=== PATIENT | male | born 1940 | race Caucasian/White ===

== ENCOUNTER 2020-11-18 14:21 | Emergency (ER) | payer MEDICARE, BC ==
[2020-11-18 14:50] VITALS: RESP 18
--- NOTE | 2020-11-18 15:27 | ED ---
General Adult HPI - General Chief complaint: Urogenital Stated complaint: Urogenital Time Seen by Provider: 11/18/20 15:00 Source: patient Mode of arrival: ambulatory Limitations: no limitations - History of Present Illness Initial comments: Dictation was produced using [employer] dictation software. please excuse any grammatical, word or spelling errors. Chief Complaint: 79-year-old male with urinary retention History of Present Illness: 79-year-old male he is been having difficulties with urinary retention the last several days. Patient states that he noted that there is been some hematuria. He did see the urologist yesterday who did not have very many recommendations. States that he recently climax after having sexual activity with his after not having been able to climax for several weeks. 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 He spoke with his primary care doctor who instructed him to come to the emergency department for ultrasound. Patient states that in the parking lot trying to exit his car he was able to urinate a large amount. He feels significantly better now. Denies any dysuria The ROS documented in this emergency department record has been reviewed and confirmed by me. Those systems with pertinent positive or negative responses have been documented in the HPI. All other systems are other negative and/or noncontributory. PHYSICAL EXAM: General Impression: Alert and oriented x3, not in acute distress HEENT: Normocephalic atraumatic, extra-ocular movements intact, pupils equal and reactive to light bilaterally, mucous membranes moist. Cardiovascular: Heart regular rate and rhythm Chest: Able to complete full sentences, no retractions, no tachypnea Abdomen: abdomen soft, non-tender, non-distended, no organomegaly Musculoskeletal: Pulses present and equal in all extremities, no peripheral edema Motor: no focal deficits noted Neurological: CN II-XII grossly intact, no focal motor or sensory deficits noted Skin: Intact with no visualized rashes Psych: Normal affect and mood ED course: 79-year-old male with urinary retention. Vital Signs upon arrival are within acceptable limits. Bladder scan was performed patient had greater than 900 mL of urine and was unable to urinate. Morelos catheter was placed. There was some bloody urine but no observed clots in the Morelos catheter reservoir. Patient given leg bag. Patient discharge. Advised to follow up again with urology. - Related Data Allergies Allergy/AdvReac Type Severity Reaction Status Date / Time Penicillins AdvReac Rash/Hives Verified 11/18/20 14:48 Sulfa (Sulfonamide AdvReac Rash/Hives Verified 11/18/20 14:48 Antibiotics) Review of Systems ROS Statement: Those systems with pertinent positive or pertinent negative responses have been documented in the HPI. ROS Other: All systems not noted in ROS Statement are negative. Past Medical History Past Medical History: Coronary Artery Disease (CAD), Cancer, Diabetes Mellitus, Hyperlipidemia, Hypertension, Myocardial Infarction ([place]), Osteoarthritis ([place]) Additional Past Medical History / Comment(s): prostate cancer History of Any Multi-Drug Resistant Organisms: None Reported Past Surgical History: Heart Catheterization With Stent Additional Past Surgical History / Comment(s): 9 stents Past Psychological History: No Psychological Hx Reported Smoking Status: Former smoker Past Alcohol Use History: Occasional Past Drug Use History: None Reported General Exam Limitations: no limitations Course Vital Signs 11/18/20 14:44 Temperature 98 F Pulse Rate 84 Respiratory 18 Rate Blood Pressure 145/81 O2 Sat by Pulse 97 Oximetry Disposition Clinical Impression: Urinary retention Disposition: HOME SELF-CARE Condition: Fair Instructions (If sedation given, give patient instructions): Urinary Retention in Men (ED) Is patient prescribed a controlled substance at d/c from ED?: No Referrals: Sha Morales MD [STAFF PHYSICIAN] - 1-2 days
[2020-11-18 16:48] VITALS: BP 143/72; PULSE 76; TEMP 97.7
[2020-11-18 17:00] LABS: Calcium 9.2 mg/dL (8.4-10.2); Potassium 4.6 mmol/L (3.5-5.1)
[2020-11-18 17:11] LABS: Amorphous Sediment,Urine Occasional /hpf; Appearance,Urine Cloudy (Clear); Bilirubin,Urine Negative (Negative); Blood,Urine Moderate (Negative); Color,Urine Yellow; Glucose,Urine (UA) Negative (Negative); Ketones,Urine Negative (Negative); Leukocyte Esterase,Urine Negative (Negative); Nitrite,Urine Negative (Negative); PH, Urine 5.5 (5.0-8.0); Protein,Urine Trace (Negative); RBC,Urine >182 /hpf (0-5); Specific Gravity,Urine 1.009 (1.001-1.035); Squamous Epithelial Cell,Urine <1 /hpf (0-4); Urobilinogen,Urine <2.0 mg/dL (<2.0); WBC,Urine 14 /hpf (0-5)
== END 2020-11-18 17:30 | disposition home or self-care (01) ==
LOC: EC 14:21
DX: R33.9 Retention of urine, unspecified (principal); E11.9 Type 2 diabetes mellitus without complications; I10 Essential (primary) hypertension; I25.10 Atherosclerotic heart disease of native coronary artery without angina pectoris; I25.2 Old myocardial infarction; E78.5 Hyperlipidemia, unspecified; Z88.0 Allergy status to penicillin; Z88.2 Allergy status to sulfonamides; Z87.891 Personal history of nicotine dependence; Z85.46 Personal history of malignant neoplasm of prostate
CPT/HCPCS: 36415; 51702; 51798; 80048; 81001; 87086; 99283

== ENCOUNTER 2020-11-27 15:35 | Emergency (ER) | payer MEDICARE, BC, OTHER ==
[2020-11-27 15:41] VITALS: BP 141/76; PULSE 97; RESP 18; TEMP 98
--- NOTE | 2020-11-27 15:54 | ED ---
General Adult HPI - General Chief complaint: Urogenital Stated complaint: Wants cath flused Time Seen by Provider: 11/27/20 15:42 Source: patient, RN notes reviewed, old records reviewed Mode of arrival: ambulatory Limitations: no limitations - History of Present Illness Initial comments: 80-year-old male presenting for evaluation of decreased urine output. Patient has had urinary retention over the past several weeks and had Morelos catheter exchanged at the urologist's office on which was 3 days prior. Over the past 3 hours she's had decreased urine output. He has been eating and drinking well. No fever. No vomiting. No abdominal pain. - Related Data Home Medications Medication Instructions Recorded Confirmed Aspirin EC [Ecotrin Low Dose] 81 mg PO BID 11/18/20 11/18/20 Cholecalciferol [Vitamin D3 (25 25 mcg PO DAILY 11/18/20 11/18/20 Mcg = 1000 Iu)] Clopidogrel [Plavix] 75 mg PO DAILY 11/18/20 11/18/20 Colchicine [Colcrys] 0.6 mg PO BID PRN 11/18/20 11/18/20 Cyanocobalamin (Vitamin B-12) 1,000 mcg PO DAILY 11/18/20 11/18/20 [Vitamin B-12] Enalapril [Vasotec] 10 mg PO DAILY 11/18/20 11/18/20 Ezetimibe [Zetia] 10 mg PO DAILY 11/18/20 11/18/20 Gemfibrozil [Lopid] 600 mg PO BID 11/18/20 11/18/20 Metoprolol Succinate (ER) [Toprol 25 mg PO DAILY 11/18/20 11/18/20 XL] Multivit-Min/FA/Lycopen/Lutein 1 tab PO DAILY 11/18/20 11/18/20 [Centrum Silver Men Tablet] Rosuvastatin Calcium [Crestor] 5 mg PO HS 11/18/20 11/18/20 Terazosin [Hytrin] 5 mg PO DAILY 11/18/20 11/18/20 amLODIPine [Norvasc] 5 mg PO DAILY 11/18/20 11/18/20 metFORMIN HCL [Glucophage] 500 mg PO BID 11/18/20 11/18/20 Previous Rx's Medication Instructions Recorded Cephalexin [Keflex] 500 mg PO Q12HR #20 cap 11/27/20 Allergies Allergy/AdvReac Type Severity Reaction Status Date / Time Penicillins AdvReac Rash/Hives Verified 11/27/20 15:41 Sulfa (Sulfonamide AdvReac Rash/Hives Verified 11/27/20 15:41 Antibiotics) Review of Systems ROS Statement: Those systems with pertinent positive or pertinent negative responses have been documented in the HPI. ROS Other: All systems not noted in ROS Statement are negative. Past Medical History Past Medical History: Coronary Artery Disease (CAD), Cancer, Diabetes Mellitus, Hyperlipidemia, Hypertension, Myocardial Infarction ([place]), Osteoarthritis ([place]) Additional Past Medical History / Comment(s): prostate cancer History of Any Multi-Drug Resistant Organisms: None Reported Past Surgical History: Heart Catheterization With Stent Additional Past Surgical History / Comment(s): 9 stents Past Psychological History: No Psychological Hx Reported Smoking Status: Former smoker Past Alcohol Use History: Occasional Past Drug Use History: None Reported General Exam Limitations: no limitations General appearance: alert, in no apparent distress Head exam: Present: atraumatic, normocephalic Eye exam: Present: normal appearance, PERRL ENT exam: Present: normal exam Neck exam: Present: normal inspection. Absent: tenderness, meningismus Respiratory exam: Present: normal lung sounds bilaterally. Absent: respiratory distress Cardiovascular Exam: Present: regular rate, normal rhythm, systolic murmur GI/Abdominal exam: Present: soft. Absent: distended, tenderness, guarding, rebound, rigid Extremities exam: Present: normal inspection, full ROM. Absent: normal capillary refill Neurological exam: Present: alert, oriented X3, motor sensory deficit. Absent: CN II-XII intact Psychiatric exam: Present: normal affect, normal mood Skin exam: Present: warm, dry, intact. Absent: cyanosis, diaphoretic Course Vital Signs 11/27/20 15:39 Temperature 98.0 F Pulse Rate 97 Respiratory 18 Rate Blood Pressure 141/76 O2 Sat by Pulse 97 Oximetry Medical Decision Making - Medical Decision Making 80-year-old male with obstructed Morelos catheter. This was flushed and is fairly flowing, approximately 600 mL of urine output. There is sediment and cloudiness to the urine. Urinalysis 153 . Bacteria. Patient started on Keflex. He will follow-up with urology. - Lab Data Lab Results 11/27/20 Range/Units 16:17 Urine Color Yellow Urine Appearance Cloudy (Clear) Urine pH 5.5 (5.0-8.0) Ur Specific [place] 1.011 (1.001-1.035) Urine Protein Trace H (Negative) Urine Glucose (UA) Negative (Negative) Urine Ketones Negative (Negative) Urine Blood Moderate H (Negative) Urine Nitrite Positive (Negative) Urine Bilirubin Negative (Negative) Urine Urobilinogen <2.0 (<2.0) mg/dL Ur Leukocyte Esterase Large H (Negative) Urine RBC 19 H (0-5) /hpf Urine WBC 153 H (0-5) /hpf Urine WBC Clumps Few H (None) /hpf Ur Squamous Epith Cells <1 (0-4) /hpf Urine Bacteria Rare H (None) /hpf Hyaline Casts 1 (0-2) /lpf Urine Mucus Rare H (None) /hpf Disposition Clinical Impression: Urinary retention Disposition: HOME SELF-CARE Condition: Good Instructions (If sedation given, give patient instructions): Urinary Retention in Men (ED) Prescriptions: Cephalexin [Keflex] 500 mg PO Q12HR #20 cap Is patient prescribed a controlled substance at d/c from ED?: No Referrals: Cheri Valdez MD [Primary Care Provider] - 1-2 days Sha Morales MD [STAFF PHYSICIAN] - 1-2 days Time of Disposition: 16:30
[2020-11-27 16:36] LABS: Appearance,Urine Cloudy (Clear); Bacteria,Urine Rare /hpf; Bilirubin,Urine Negative (Negative); Blood,Urine Moderate (Negative); Color,Urine Yellow; Glucose,Urine (UA) Negative (Negative); Hyaline Casts,Urine 1 /lpf (0-2); Ketones,Urine Negative (Negative); Leukocyte Esterase,Urine Large (Negative); Mucus,Urine Rare /hpf; Nitrite,Urine Positive (Negative); PH, Urine 5.5 (5.0-8.0); Protein,Urine Trace (Negative); RBC,Urine 19 /hpf (0-5); Specific Gravity,Urine 1.011 (1.001-1.035); Squamous Epithelial Cell,Urine <1 /hpf (0-4); Urobilinogen,Urine <2.0 mg/dL (<2.0); WBC,Urine 153 /hpf (0-5)
== END 2020-11-27 17:10 | disposition home or self-care (01) ==
LOC: EC 15:35
DX: R33.9 Retention of urine, unspecified (principal); E11.9 Type 2 diabetes mellitus without complications; I10 Essential (primary) hypertension; E78.5 Hyperlipidemia, unspecified; I25.10 Atherosclerotic heart disease of native coronary artery without angina pectoris; I25.2 Old myocardial infarction; M19.90 Unspecified osteoarthritis, unspecified site; Z85.46 Personal history of malignant neoplasm of prostate; Z87.891 Personal history of nicotine dependence; Z79.02 Long term (current) use of antithrombotics/antiplatelets; Z79.82 Long term (current) use of aspirin; Z79.84 Long term (current) use of oral hypoglycemic drugs; Z79.899 Other long term (current) drug therapy; Z88.0 Allergy status to penicillin; Z88.2 Allergy status to sulfonamides
CPT/HCPCS: 81001; 87086; 99283

== ENCOUNTER 2020-12-02 09:19 | Inpatient (IN) | payer OTHER, MEDICARE, BC ==
[~2020-12-02 09:19] MED LIST: PANTOPRAZOLE 40 MG/10 ML VIAL IVP STA
--- NOTE | 2020-12-02 09:34 | ED ---
General Adult HPI - General Chief complaint: GI Bleed Stated complaint: Blood in Stool Time Seen by Provider: 12/02/20 09:19 Source: patient, RN notes reviewed Mode of arrival: ambulatory Limitations: no limitations - History of Present Illness Initial comments: Patient is a pleasant 80-year-old male presenting to the emergency Department with blood in his stool. Patient had an episode last night and another one this morning. Blood was mixed with stool. No abdominal pain. No rectal pain. No nausea vomiting. No fevers. No history of similar symptoms previously. Patient does take Plavix. Patient was recently in the hospital with catheter pr oblems. - Related Data Home Medications Medication Instructions Recorded Confirmed Aspirin EC [Ecotrin Low Dose] 81 mg PO BID 11/18/20 12/02/20 Cholecalciferol [Vitamin D3 (25 25 mcg PO DAILY 11/18/20 12/02/20 Mcg = 1000 Iu)] Clopidogrel [Plavix] 75 mg PO DAILY 11/18/20 12/02/20 Cyanocobalamin (Vitamin B-12) 1,000 mcg PO DAILY 11/18/20 12/02/20 [Vitamin B-12] Enalapril [Vasotec] 10 mg PO DAILY 11/18/20 12/02/20 Ezetimibe [Zetia] 10 mg PO DAILY 11/18/20 12/02/20 Gemfibrozil [Lopid] 600 mg PO BID 11/18/20 12/02/20 Metoprolol Succinate (ER) [Toprol 25 mg PO DAILY 11/18/20 12/02/20 XL] Multivit-Min/FA/Lycopen/Lutein 1 tab PO DAILY 11/18/20 12/02/20 [Centrum Silver Men Tablet] Rosuvastatin Calcium [Crestor] 5 mg PO HS 11/18/20 12/02/20 Terazosin [Hytrin] 5 mg PO DAILY 11/18/20 12/02/20 amLODIPine [Norvasc] 5 mg PO DAILY 11/18/20 12/02/20 metFORMIN HCL [Glucophage] 500 mg PO BID 11/18/20 12/02/20 Previous Rx's Medication Instructions Recorded Cephalexin [Keflex] 500 mg PO Q12HR #20 cap 11/27/20 Allergies Allergy/AdvReac Type Severity Reaction Status Date / Time Penicillins AdvReac Rash/Hives Verified 12/02/20 09:22 Sulfa (Sulfonamide AdvReac Rash/Hives Verified 12/02/20 09:22 Antibiotics) Review of Systems ROS Statement: Those systems with pertinent positive or pertinent negative responses have been documented in the HPI. ROS Other: All systems not noted in ROS Statement are negative. Constitutional: Denies: fever Eyes: Denies: eye pain ENT: Denies: ear pain Respiratory: Denies: cough Cardiovascular: Denies: palpitations Endocrine: Denies: fatigue Gastrointestinal: Reports: hematochezia. Denies: abdominal pain Genitourinary: Reports: as per HPI. Denies: dysuria Musculoskeletal: Denies: back pain Skin: Denies: rash Neurological: Denies: weakness Past Medical History Past Medical History: Coronary Artery Disease (CAD), Cancer, Diabetes Mellitus, Hyperlipidemia, Hypertension, Myocardial Infarction ([place]), Osteoarthritis ([place]) Additional Past Medical History / Comment(s): prostate cancer History of Any Multi-Drug Resistant Organisms: Other MDRO Past Surgical History: Heart Catheterization With Stent Additional Past Surgical History / Comment(s): 9 stents Past Psychological History: No Psychological Hx Reported Smoking Status: Former smoker Past Alcohol Use History: Occasional Past Drug Use History: None Reported General Exam Limitations: no limitations General appearance: alert, in no apparent distress Head exam: Present: normocephalic Eye exam: Present: normal appearance Neck exam: Present: normal inspection Respiratory exam: Present: normal lung sounds bilaterally Cardiovascular Exam: Present: regular rate, normal rhythm GI/Abdominal exam: Present: soft. Absent: distended, tenderness, guarding, rebound, rigid Rectal exam: Present: normal rectal tone, bloody stool Extremities exam: Present: normal inspection Neurological exam: Present: alert Psychiatric exam: Present: normal affect, normal mood Skin exam: Present: normal color Course Vital Signs 12/02/20 09:19 Temperature 97.5 F L Pulse Rate 99 Respiratory 18 Rate Blood Pressure 123/77 O2 Sat by Pulse 97 Oximetry - Reevaluation(s) Reevaluation #1: 12/02/20 09:34 Review of urine culture shows pseudomonas only sensitive to IV medications. Medical Decision Making - Medical Decision Making Patient reevaluated and updated. Case was discussed with act sheet, who will admit covering Dr. Valdez. - Lab Data Result diagrams: 12/02/20 09:49 Lab Results 12/02/20 12/02/20 Range/Units 09:49 09:49 WBC 9.5 (3.8-10.6) k/uL RBC 3.76 L (4.30-5.90) m/uL Hgb 11.7 L (13.0-17.5) gm/dL Hct 35.4 L (39.0-53.0) % MCV 94.1 (80.0-100.0) fL MCH 31.1 (25.0-35.0) pg MCHC 33.1 (31.0-37.0) g/dL RDW 14.0 (11.5-15.5) % Plt Count 332 (150-450) k/uL MPV 7.8 Neutrophils % 79 % Lymphocytes % 10 % Monocytes % 6 % Eosinophils % 3 % Basophils % 1 % Neutrophils # 7.5 (1.3-7.7) k/uL Lymphocytes # 0.9 L (1.0-4.8) k/uL Monocytes # 0.6 (0-1.0) k/uL Eosinophils # 0.3 (0-0.7) k/uL Basophils # 0.1 (0-0.2) k/uL Stool Occult Blood Positive (Negative) Disposition Clinical Impression: Lower gastrointestinal hemorrhage, Pseudomonas urinary tract infection Disposition: ADMITTED IP TO THIS [facility] Condition: Serious Is patient prescribed a controlled substance at d/c from ED?: No Referrals: Cheri Valdez MD [Primary Care Provider] - 1-2 days Decision Time: 10:38
[2020-12-02 10:25] LABS: Basophils # (A) 0.1 k/uL (0-0.2); Basophils % (A) 1 %; Eosinophils # (A) 0.3 k/uL (0-0.7); Eosinophils % (A) 3 %; HCT 35.4 % (39.0-53.0); HGB 11.7 gm/dL (13.0-17.5); Lymphocytes # (A) 0.9 k/uL (1.0-4.8); Lymphocytes % (A) 10 %; MCH 31.1 pg (25.0-35.0); MCHC 33.1 g/dL (31.0-37.0); MCV 94.1 fL (80.0-100.0); Mean Platelet Volume 7.8; Monocytes # (A) 0.6 k/uL (0-1.0); Monocytes % (A) 6 %; Neutrophils # (A) 7.5 k/uL (1.3-7.7); Neutrophils % (A) 79 %; Platelet Count 332 k/uL (150-450); RBC 3.76 m/uL (4.30-5.90); WBC 9.5 k/uL (3.8-10.6)
[2020-12-02] MEDS ORDERED: NALOXONE 0.4 MG/ML 1 ML VIAL IV PRN (10:39)
[2020-12-02 10:40] LABS: Albumin 4.2 g/dL (3.5-5.0); Calcium 9.3 mg/dL (8.4-10.2); Total Bilirubin 0.3 mg/dL (0.2-1.3); Total Protein 6.7 g/dL (6.3-8.2)
[2020-12-02 10:53] LABS: Partial Thromboplastin Time 25.5 sec (22.0-30.0); Prothrombin Time 10.6 sec (9.0-12.0)
[2020-12-02 10:57] LABS: Potassium 4.7 mmol/L (3.5-5.1)
[2020-12-02 10:58] LABS: Appearance,Urine Cloudy (Clear); Bacteria,Urine Rare /hpf; Bilirubin,Urine Negative (Negative); Blood,Urine Large (Negative); Budding Yeast,Urine Rare /hpf; Color,Urine Yellow; Glucose,Urine (UA) Negative (Negative); Ketones,Urine Negative (Negative); Leukocyte Esterase,Urine Large (Negative); Mucus,Urine Rare /hpf; Nitrite,Urine Positive (Negative); PH, Urine 5.5 (5.0-8.0); Protein,Urine 1+ (Negative); RBC,Urine >182 /hpf (0-5); Specific Gravity,Urine 1.023 (1.001-1.035); Squamous Epithelial Cell,Urine 1 /hpf (0-4); Urobilinogen,Urine <2.0 mg/dL (<2.0); WBC,Urine >182 /hpf (0-5)
[2020-12-02] MEDS ORDERED: amLODIPine 5 MG TAB PO PRN (13:37)
--- NOTE | 2020-12-02 13:39 | P.HPIM ---
History of Present Illness This is a pleasant 8 years old male with past medical history of hypertension, hyperlipidemia, diabetes mellitus, coronary artery disease status post stenting with 9 stents, prostate cancer. Patient presents because he noticed blood in his stool. Patient states that he has recent history of urinary retention status post indwelling Morelos catheter placed about 3 weeks ago and he follows up with Dr. vang. His PCP is Dr. Valdez and paper pattern inspector Dr. Mayberry. He is on aspirin and Plavix for his coronary artery disease, stents placed for him last July and August this year as per patient He presents today because he noticed fresh blood with his loose stool from yesterday night, 1 episode yesterday and 3 episodes today. There was some amount of fresh blood with his loose stool. However no abdominal pain, no nausea vomiting. He denies chest pain or dyspnea. No dizziness. No other complaints. No fever No generalized weakness. He does not take NSAIDs other than as per Plavix. He is not on a blood thinner He has urine culture from 11/27 positive for pseudomonas and E. coli. From his visit to emergency room for decreased urine output that time Hemodynamics the patient is a stable. Labs showing hemoglobin of 11.7, rest of CBC is unremarkable. Creatinine is elevated at 1.4 which is at baseline 1.2-1.4. Urinalysis is suspicious for infection and occult blood in the stool is positive and emergency room patient received ceftazidime and Protonix Review of Systems CONSTITUTIONAL: No fever, no malaise, no fatigue. HEENT: No recent visual problems or hearing problems. Denied any sore throat. CARDIOVASCULAR: No orthopnea, PND, no palpitations, no syncope. PULMONARY: No shortness of breath, no cough, no hemoptysis. GASTROINTESTINAL: No diarrhea, no nausea, no vomiting, no abdominal pain. Normoactive bowel sounds. NEUROLOGICAL: No headaches, no weakness, no numbness. HEMATOLOGICAL: Denies any bleeding or petechiae. GENITOURINARY: Denies any burning micturition, frequency, or urgency. MUSCULOSKELETAL/RHEUMATOLOGICAL: Denies any joint pain, swelling, or any muscle pain. ENDOCRINE: Denies any polyuria or polydipsia. Past Medical History Past Medical History: Coronary Artery Disease (CAD), Cancer, Diabetes Mellitus, Hyperlipidemia, Hypertension, Myocardial Infarction ([place]), Osteoarthritis ([place]) Additional Past Medical History / Comment(s): prostate cancer History of Any Multi-Drug Resistant Organisms: Other MDRO Past Surgical History: Heart Catheterization With Stent Additional Past Surgical History / Comment(s): 9 stents Past Psychological History: No Psychological Hx Reported Smoking Status: Former smoker Past Alcohol Use History: Occasional Past Drug Use History: None Reported Medications and Allergies Home Medications Medication Instructions Recorded Confirmed Type Aspirin EC [Ecotrin Low Dose] 81 mg PO BID 11/18/20 12/02/20 History Cholecalciferol [Vitamin D3 (25 25 mcg PO DAILY 11/18/20 12/02/20 History Mcg = 1000 Iu)] Clopidogrel [Plavix] 75 mg PO DAILY 11/18/20 12/02/20 History Cyanocobalamin (Vitamin B-12) 1,000 mcg PO DAILY 11/18/20 12/02/20 History [Vitamin B-12] Enalapril [Vasotec] 10 mg PO DAILY 11/18/20 12/02/20 History Ezetimibe [Zetia] 10 mg PO DAILY 11/18/20 12/02/20 History Gemfibrozil [Lopid] 600 mg PO BID 11/18/20 12/02/20 History Metoprolol Succinate (ER) [Toprol 25 mg PO DAILY 11/18/20 12/02/20 History XL] Multivit-Min/FA/Lycopen/Lutein 1 tab PO DAILY 11/18/20 12/02/20 History [Centrum Silver Men Tablet] Rosuvastatin Calcium [Crestor] 5 mg PO HS 11/18/20 12/02/20 History Terazosin [Hytrin] 5 mg PO DAILY 11/18/20 12/02/20 History amLODIPine [Norvasc] 5 mg PO DAILY 11/18/20 12/02/20 History metFORMIN HCL [Glucophage] 500 mg PO BID 11/18/20 12/02/20 History Cephalexin [Keflex] 500 mg PO Q12HR #20 cap 11/27/20 12/02/20 Rx Allergies Allergy/AdvReac Type Severity Reaction Status Date / Time Penicillins AdvReac Rash/Hives Verified 12/02/20 09:22 Sulfa (Sulfonamide AdvReac Rash/Hives Verified 12/02/20 09:22 Antibiotics) Physical Exam Vitals: Vital Signs Temp Pulse Resp BP Pulse Ox 12/02/20 11:25 66 18 122/72 99 12/02/20 09:19 97.5 F L 99 18 123/77 97 Intake and Output 12/01/20 12/02/20 12/02/20 22:59 06:59 14:59 Other: Weight 106.141 kg GENERAL: The patient is alert and oriented x3, not in any acute distress. Well developed, well nourished. HEENT: Pupils are round and equally reacting to light. EOMI. No scleral icterus. No conjunctival pallor. Normocephalic, atraumatic. No pharyngeal erythema. No thyromegaly. CARDIOVASCULAR: S1 and S2 present. No murmurs, rubs, or gallops. PULMONARY: Chest is clear to auscultation, no wheezing or crackles. ABDOMEN: Soft, nontender, nondistended, normoactive bowel sounds. No palpable organomegaly. MUSCULOSKELETAL: No joint swelling or deformity. EXTREMITIES: No cyanosis, clubbing, or pedal edema. NEUROLOGICAL: Gross neurological examination did not reveal any focal deficits. SKIN: No rashes. No petechiae Results CBC & Chem 7: 12/02/20 09:49 12/02/20 09:49 Labs: Abnormal Lab Results - Last 24 Hours (Table) 12/02/20 12/02/20 12/02/20 Range/Units 09:49 09:49 09:49 RBC 3.76 L (4.30-5.90) m/uL Hgb 11.7 L (13.0-17.5) gm/dL Hct 35.4 L (39.0-53.0) % Lymphocytes # 0.9 L (1.0-4.8) k/uL Chloride 110 H (98-107) mmol/L Carbon Dioxide 16 L (22-30) mmol/L BUN 33 H (9-20) mg/dL Creatinine 1.46 H (0.66-1.25) mg/dL Glucose 155 H (74-99) mg/dL Urine Protein 1+ H (Negative) Urine Blood Large H (Negative) Ur Leukocyte Esterase Large H (Negative) Urine RBC >182 H (0-5) /hpf Urine WBC >182 H (0-5) /hpf Urine WBC Clumps Few H (None) /hpf Urine Bacteria Rare H (None) /hpf Urine Mucus Rare H (None) /hpf Urine Yeast (Budding) Rare H (None) /hpf Assessment and Plan Assessment: Acute GI bleed Loss anemia secondary to above Acute tract infection Diabetes mellitus Hypertension Hyperlipidemia Chronic kidney disease stage III histoty Of coronary artery disease status post 9 stents Plan: this is a pleasant 80 years old male who presents with possible GI bleed.Also with UTI Admit the patient to select unit Continue with Protonix IV. Monitor hemoglobin and vitals. surgery team consult with Dr. Hoyos continuous ceftazidime. And consult infectious disease team Cardiology team consult for recent stent placement he has borderline blood pressure, not hypertensive so we'll not start his anti hypertensive medication currently and keep monitoring. Hold Norvasc, enalapril and terazosin . Continue with metoprolol 25 mg daily and change Crestor to Lipitor. Hold metformin and continue with insulin sliding scale Labs and medications were reviewed. Continue with symptomatic treatment. Resume home medication. Monitor lytes and vitals. DVT and GI prophylaxis. Further recommendations depends on the clinical course of the patient DVT prophylaxis: no Subcutaneous heparin GI Prophylaxis: Ppi PT/OT: Pending Prognosis is guarded
[2020-12-02] MEDS: PANTOPRAZOLE 40 MG/10 ML VIAL IV SCH (22:40)
--- NOTE | 2020-12-03 01:04 | CONS ---
CONSULTATION DATE OF SERVICE: 12/02/2020 REASON FOR CONSULTATION: Urinary tract infection. HISTORY OF PRESENT ILLNESS: The patient is an 80 -year-old male presenting to the ER at [facility] this morning for evaluation of blood in the stools. Apparently the patient noticed symptoms last night with an episode this morning so this morning. MMODL / IJN: [id number] /
--- NOTE | 2020-12-03 01:08 | CONS ---
CONSULTATION DATE OF SERVICE: 12/02/2020 REASON FOR CONSULTATION: Urinary tract infection. HISTORY OF PRESENT ILLNESS: The patient is an 80 -year-old male who presented to the ER for evaluation of bleeding per rectum in this patient who did have an episode of diarrhea last night and one this morning. The patient denies having any abdominal pain. The patient denies having any nausea, no vomiting. Denies having any chest pain, shortness of breath or cough. The patient recently did have a problem with urinary retention requiring indwelling Morelos catheter placement which has not been removed . 0The patient did have a UA obtained from the Morelos catheter which was positive. The patient has been diagnosed with a catheter associated urinary tract infection. He was started on Fortaz and admitted to the hospital. Infectious Disease was consulted for further management of antibiotic therapy. The GI service has been consulted for his GI bleed. REVIEW OF SYSTEMS: Positive points have been mentioned in HPI. Rest of systems are negative. PAST MEDICAL HISTORY: Coronary artery disease, diabetes mellitus, hyperlipidemia, hypertension, [place], osteoarthritis, history of prostate cancer. PAST SURGICAL HISTORY: PTCA with stent. SOCIAL HISTORY: Remote history of smoking. Occasionally drinks. No drug use. FAMILY HISTORY: No pertinent findings noticed. ALLERGIES: PENICILLIN and SULFA. MEDICATIONS: The patient is currently on Norvasc, Fortaz, , Toprol-XL Narcan and Protonix. PHYSICAL EXAMINATION: Blood pressure 146/72 with a pulse of 81, temperature 97.7. He is 99% on room air. GENERAL DESCRIPTION is an elderly male lying in bed in no distress. No tachypnea or accessory muscles of respiration use. HEENT: Examination shows slight pallor. No scleral icterus. Oral mucous membranes dry. NECK: Trachea central. No thyromegaly. LUNGS unlabored breathing. Clear to auscultation anteriorly. No wheeze or crackles. HEART S1, S2. Regular rate and rhythm. ABDOMEN soft. No tenderness. No guarding. No rigidity. EXTREMITIES: No edema of the feet. SKIN examination: No rash or mass palpable. NEUROLOGICAL: Patient is awake, alert, oriented times three. Mood and affect normal. LABS: Hemoglobin is 11.7, white count 9.5, BUN of 33, creatinine 1.46. Electrolytes have been normal. Liver enzymes are normal. Urine is positive. DIAGNOSTIC IMPRESSION AND PLAN: 1. Patient admitted to the hospital with bleeding per rectum in this patient who did have a chronic indwelling Morelos catheter with a positive UA with no fever or elevated white count. Concern for possible colonization of the catheter versus urinary tract infection. 2. Patient did have multiple antibiotic allergies that will limit the number of antibiotics safe to use. PLAN: 1. We will change his Morelos catheter, obtain urine culture from new Morelos. 2. Continue with Fortaz 1 gm q8 while waiting for the culture to finalize. 3. We will follow on clinical condition and further adjust medication if needed. Thank you for this consultation. We will follow this patient along with you. MMODL / IJN: [id number] /
[2020-12-03 06:26] LABS: Glucose,Whole Blood 125 mg/dL (75-99)
[2020-12-03] MEDS: INSULIN ASPART (NovoLOG) 100 UNIT/ML VIAL SQ SCH ×4 (06:33→20:35)
[2020-12-03 08:20] LABS: Basophils # (A) 0.1 k/uL (0-0.2); Basophils % (A) 0 %; Eosinophils # (A) 0.5 k/uL (0-0.7); Eosinophils % (A) 3 %; HCT 34.9 % (39.0-53.0); HGB 11.6 gm/dL (13.0-17.5); Lymphocytes # (A) 1.6 k/uL (1.0-4.8); Lymphocytes % (A) 11 %; MCH 31.7 pg (25.0-35.0); MCHC 33.2 g/dL (31.0-37.0); MCV 95.5 fL (80.0-100.0); Mean Platelet Volume 7.6; Monocytes # (A) 0.8 k/uL (0-1.0); Monocytes % (A) 6 %; Neutrophils # (A) 10.9 k/uL (1.3-7.7); Neutrophils % (A) 78 %; Platelet Count 367 k/uL (150-450); RBC 3.65 m/uL (4.30-5.90); RDW 14.7 % (11.5-15.5)
[2020-12-03] MEDS: FENOFIBRATE 160 MG TAB PO SCH (08:38)
[2020-12-03] MEDS: PANTOPRAZOLE 40 MG/10 ML VIAL IV SCH ×2 (08:38→20:36)
[2020-12-03] MEDS: EZETIMIBE 10 MG TAB PO SCH (08:38)
[2020-12-03] MEDS: METOPROLOL SUCCINATE (ER) 25 MG TAB.ER.24H PO SCH (08:38)
[2020-12-03] MEDS ORDERED: PANTOPRAZOLE 40 MG/10 ML VIAL IV SCH (09:00)
--- NOTE | 2020-12-03 10:17 | P.CRDCN ---
History of Present Illness History of present illness: HISTORY OF PRESENTING ILLNESS This is a pleasant 80-year-old female past medical history significant for hypertension, hyperlipidemia, type 2 diabetes mellitus, myocardial infarction in July 2020, coronary artery disease status post stenting in 2007, and most recently July 2020 and August 2020, prostate cancer. He follows with Dr. Bautista at [facility]. We have been asked to see in consultation for recent stent with GI bleed. Patient presents to the emergency department due to blood in his stool. He noticed dark and bright red blood in his loose stool started on Sunday and continuously every bowel movement until Today. Patient states that he has recent history of urinary retention status post indwelling mcknight catheter placed about 3 weeks ago. It urine was pale yellow color and now is blood tinged. He denies chest pain, shortness of breath, lightheadedness, dizziness, syncope or pre- syncope. Denies symptoms of orthopnea or PND. He is a non smoker. Denies alcohol use. His cardiac history includes abnormal stress test in 2007, subsequently underwent cardiac catheterization with stents placed. July 2020 he was told he did have a "small heart attack" and underwent cardiac catheterization with 1 stent placed, he was told there were also other blockage. He was taken back to the industrial laborer in August 2020 to have 2 more stents placed. He follows closely with his auto finance sales rep. Total of 9 stents he states. Has undergone echocardiogram and has been told his LV function is ok/stable. DIAGNOSTICS Telemetry tracings indicate sinus mechanism HR 90-low 100s Laboratory reviewed, WBC 9.5, hemoglobin 11.7, platelets 332, sodium 138, potassium 4.7, BUN 33, serum creatinine 1.4 Current home cardiac medications include amlodipine 5 mg daily, Crestor 5 mg nightly, metoprolol succinate 25 mg daily, Zetia 10 mg daily, enalapril 10 mg daily, Plavix 75 mg daily, aspirin 81 mg twice a day. REVIEW OF SYSTEMS At the time of my exam: CONSTITUTIONAL: Denies fever or chills. CARDIOVASCULAR: Denies chest pain, shortness of breath, orthopnea, PND or palpitations. RESPIRATORY: Denies cough. GASTROINTESTINAL: Denies abdominal pain, diarrhea, constipation, nausea or vomiting. MUSCULOSKELETAL: Denies myalgias. NEUROLOGIC: Denies numbness, tingling, headacbe or weakness. ENDOCRINE: Denies fatigue, weight change, polydipsia or polyurina. GENITOURINARY: Denies burning, hematuria or urgency with micturation. HEMATOLOGIC: +bleeding per rectum +blood in urine PHYSICAL EXAMINATION Blood pressure 134/75 heart rate 74 afebrile and maintaining oxygen saturation 98% on room air CONSTITUTIONAL: No apparent distress. HEENT: Head is normocephalic. Pupils are equal, round. Sclerae anicteric. Mucous membranes of the mouth are moist. No JVD. No carotid bruit. CHEST EXAMINATION: Lungs are clear to auscultation. No chest wall tenderness is noted on palpation or with deep breathing. HEART EXAMINATION: Regular rate and rhythm. S1, S2 heard. No murmurs, gallops or rub. ABDOMEN: Soft, nontender. Positive bowel sounds. : patient with mcknight catheter with blood tinged urine EXTREMITIES: 2+ peripheral pulses, no lower extremity edema and no calf tenderness. NEUROLOGIC EXAMINATION: Patient is awake, alert and oriented x3. ASSESSMENT GI bleed Blood in Urine Urinary tract infection Coronary artery disease s/p PCI in 2007, July 2020 and August 2020, states he has had a total of 9 stents Hypertension Type 2 Diabetes Hyperlipidemia Acute on Chronic kidney disease PLAN From a cardiology perspective, hold aspirin and plavix at this time due to possible GI bleed. ACEI currently on hold due to REGAN Continue other cardiac medications No further cardiac workup at this time Rest of management per GI and primary Further recommendations based on clinical course Nurse Practitioner note has been reviewed, I agree with a documented findings and plan of care. Patient was seen and examined. Past Medical History Past Medical History: Coronary Artery Disease (CAD), Cancer, Diabetes Mellitus, Hyperlipidemia, Hypertension, Myocardial Infarction ([place]), Osteoarthritis ([place]) Additional Past Medical History / Comment(s): prostate cancer History of Any Multi-Drug Resistant Organisms: Other MDRO Past Surgical History: Heart Catheterization With Stent Additional Past Surgical History / Comment(s): 9 stents Past Psychological History: No Psychological Hx Reported Smoking Status: Former smoker Past Alcohol Use History: Occasional Past Drug Use History: None Reported Medications and Allergies Home Medications Medication Instructions Recorded Confirmed Type Aspirin EC [Ecotrin Low Dose] 81 mg PO BID 11/18/20 12/02/20 History Cholecalciferol [Vitamin D3 (25 25 mcg PO DAILY 11/18/20 12/02/20 History Mcg = 1000 Iu)] Clopidogrel [Plavix] 75 mg PO DAILY 11/18/20 12/02/20 History Cyanocobalamin (Vitamin B-12) 1,000 mcg PO DAILY 11/18/20 12/02/20 History [Vitamin B-12] Enalapril [Vasotec] 10 mg PO DAILY 11/18/20 12/02/20 History Ezetimibe [Zetia] 10 mg PO DAILY 11/18/20 12/02/20 History Gemfibrozil [Lopid] 600 mg PO BID 11/18/20 12/02/20 History Metoprolol Succinate (ER) [Toprol 25 mg PO DAILY 11/18/20 12/02/20 History XL] Multivit-Min/FA/Lycopen/Lutein 1 tab PO DAILY 11/18/20 12/02/20 History [Centrum Silver Men Tablet] Rosuvastatin Calcium [Crestor] 5 mg PO HS 11/18/20 12/02/20 History Terazosin [Hytrin] 5 mg PO DAILY 11/18/20 12/02/20 History amLODIPine [Norvasc] 5 mg PO DAILY 11/18/20 12/02/20 History metFORMIN HCL [Glucophage] 500 mg PO BID 11/18/20 12/02/20 History Cephalexin [Keflex] 500 mg PO Q12HR #20 cap 11/27/20 12/02/20 Rx Allergies Allergy/AdvReac Type Severity Reaction Status Date / Time Penicillins AdvReac Rash/Hives Verified 12/02/20 09:22 Sulfa (Sulfonamide AdvReac Rash/Hives Verified 12/02/20 09:22 Antibiotics) Physical Exam Vitals: Vital Signs Temp Pulse Resp BP Pulse Ox 12/02/20 13:22 74 18 134/75 98 12/02/20 11:25 66 18 122/72 99 12/02/20 09:19 97.5 F L 99 18 123/77 97 Intake and Output 12/01/20 12/02/20 12/02/20 22:59 06:59 14:59 Other: Weight 106.141 kg Results 12/03/20 07:32 12/02/20 09:49 Cardiac Enzymes 12/02/20 Range/Units 09:49 AST 23 (17-59) U/L Coagulation 12/02/20 Range/Units 09:49 PT 10.6 (9.0-12.0) sec APTT 25.5 (22.0-30.0) sec CBC 12/02/20 Range/Units 09:49 WBC 9.5 (3.8-10.6) k/uL RBC 3.76 L (4.30-5.90) m/uL Hgb 11.7 L (13.0-17.5) gm/dL Hct 35.4 L (39.0-53.0) % Plt Count 332 (150-450) k/uL Comprehensive Metabolic Panel 12/02/20 Range/Units 09:49 Sodium 138 (137-145) mmol/L Potassium 4.7 (3.5-5.1) mmol/L Chloride 110 H (98-107) mmol/L Carbon Dioxide 16 L (22-30) mmol/L BUN 33 H (9-20) mg/dL Creatinine 1.46 H (0.66-1.25) mg/dL Glucose 155 H (74-99) mg/dL Calcium 9.3 (8.4-10.2) mg/dL AST 23 (17-59) U/L ALT 12 (4-49) U/L Alkaline Phosphatase 93 (38-126) U/L Total Protein 6.7 (6.3-8.2) g/dL Albumin 4.2 (3.5-5.0) g/dL Current Medications Generic Name Dose Route Start Last Admin Trade Name Freq PRN Reason Stop Dose Admin Amlodipine Besylate 5 mg 12/02/20 13:37 Amlodipine 5 Mg Tab PO DAILY PRN Blood Pressure - High Ezetimibe 10 mg 12/03/20 09:00 Ezetimibe 10 Mg Tab PO DAILY SHAZIA Fenofibrate 160 mg 12/03/20 09:00 Fenofibrate 160 Mg Tab PO DAILY SHAZIA Ceftazidime 1 gm/ Sodium 50 mls @ 12.5 mls/hr 12/02/20 20:00 Chloride IVPB Q8H SHAZIA Metoprolol Succinate 25 mg 12/03/20 09:00 Metoprolol Succinate (Er) 25 Mg Tab.Er.24h PO DAILY SHAZIA Naloxone HCl 0.2 mg 12/02/20 10:39 Naloxone 0.4 Mg/Ml 1 Ml Vial IV Q2M PRN Opioid Reversal Pantoprazole Sodium 40 mg 12/02/20 21:00 Pantoprazole 40 Mg/10 Ml Vial IV BID SHAZIA Intake and Output 12/01/20 12/02/20 12/02/20 22:59 06:59 14:59 Other: Weight 106.141 kg Patient Weight 12/03/20 06:59 Weight 106.141 kg 12/02/20 09:49 12/02/20 09:49
[2020-12-03 11:58] LABS: Glucose,Whole Blood 137 mg/dL (75-99)
--- NOTE | 2020-12-03 13:12 | P.GSCN ---
History of Present Illness Consult date: 12/03/20 History of present illness: 80-year-old male presented to the emergency department with complaints of blood in his stool. Due to history of coronary artery disease, patient has had recent stents placed in July and August of this year. He is currently on aspirin and Plavix secondary to stent placement. He states that prior to his arrival to the emergency department yesterday, he had 3 episodes of loose stool with bright red blood. He denied any abdominal pain. Denied any emesis or nausea. He also has recently had urinary retention and has had a chronic Morelos catheter in place. He is being treated for urinary tract infection positive for pseudomonas and E. coli at this time. Urine is also noted to have a tinge of pink. Patient states his last colonoscopy was approximately 7 or 8 years ago without any significant abnormalities. Review of Systems All systems: negative Past Medical History Past Medical History: Coronary Artery Disease (CAD), Cancer, Diabetes Mellitus, Hyperlipidemia, Hypertension, Myocardial Infarction ([place]), Osteoarthritis ([place]) Additional Past Medical History / Comment(s): prostate cancer Last Myocardial Infarction Date:: July 2020 History of Any Multi-Drug Resistant Organisms: Other MDRO Past Surgical History: Heart Catheterization With Stent Additional Past Surgical History / Comment(s): 9 stents Past Anesthesia/Blood Transfusion Reactions: No Reported Reaction Date of Last Stent Placement:: July 2020 Past Psychological History: No Psychological Hx Reported Smoking Status: Former smoker Past Alcohol Use History: Occasional Past Drug Use History: None Reported Medications and Allergies Home Medications Medication Instructions Recorded Confirmed Type Aspirin EC [Ecotrin Low Dose] 81 mg PO BID 11/18/20 12/02/20 History Cholecalciferol [Vitamin D3 (25 25 mcg PO DAILY 11/18/20 12/02/20 History Mcg = 1000 Iu)] Clopidogrel [Plavix] 75 mg PO DAILY 11/18/20 12/02/20 History Cyanocobalamin (Vitamin B-12) 1,000 mcg PO DAILY 11/18/20 12/02/20 History [Vitamin B-12] Enalapril [Vasotec] 10 mg PO DAILY 11/18/20 12/02/20 History Ezetimibe [Zetia] 10 mg PO DAILY 11/18/20 12/02/20 History Gemfibrozil [Lopid] 600 mg PO BID 11/18/20 12/02/20 History Metoprolol Succinate (ER) [Toprol 25 mg PO DAILY 11/18/20 12/02/20 History XL] Multivit-Min/FA/Lycopen/Lutein 1 tab PO DAILY 11/18/20 12/02/20 History [Centrum Silver Men Tablet] Rosuvastatin Calcium [Crestor] 5 mg PO HS 11/18/20 12/02/20 History Terazosin [Hytrin] 5 mg PO DAILY 11/18/20 12/02/20 History amLODIPine [Norvasc] 5 mg PO DAILY 11/18/20 12/02/20 History metFORMIN HCL [Glucophage] 500 mg PO BID 11/18/20 12/02/20 History Cephalexin [Keflex] 500 mg PO Q12HR #20 cap 11/27/20 12/02/20 Rx Allergies Allergy/AdvReac Type Severity Reaction Status Date / Time Penicillins AdvReac Rash/Hives Verified 12/02/20 09:22 Sulfa (Sulfonamide AdvReac Rash/Hives Verified 12/02/20 09:22 Antibiotics) Surgical - Exam Osteopathic Statement: *. No significant issues noted on an osteopathic structural exam other than those noted in the History and Physical/Consult. Vital Signs Temp Pulse Resp BP Pulse Ox 97.5 F L 99 18 123/77 97 12/02/20 09:19 12/02/20 09:19 12/02/20 09:19 12/02/20 09:19 12/02/20 09:19 - General well nourished, no distress - Neck trachea midline - Respiratory normal respiratory effort - Abdomen Abdomen: soft, non tender Results - Labs 12/03/20 07:32 12/02/20 09:49 Abnormal Lab Results - Last 24 Hours (Table) 12/03/20 12/03/20 12/03/20 Range/Units 06:24 07:32 11:56 WBC 14.0 H (3.8-10.6) k/uL RBC 3.65 L (4.30-5.90) m/uL Hgb 11.6 L (13.0-17.5) gm/dL Hct 34.9 L (39.0-53.0) % Neutrophils # 10.9 H (1.3-7.7) k/uL POC Glucose (mg/dL) 125 H 137 H (75-99) mg/dL Microbiology - Last 24 Hours (Table) 12/02/20 09:49 Blood Culture - Preliminary Blood No Growth after 24 hours 08 09:49 Blood Culture - Preliminary Blood No Growth after 24 hours 12/02/20 09:49 Urine Culture - Preliminary Urine,Voided Assessment and Plan Plan: 80-year-old male with GI hemorrhage. I would recommend holding anticoagulation at this time. Patient states that his last bloody bowel movement was approximately 6 or 7 hours ago and he states he has noted that there appears to be less bright red blood. Hemoglobin has remained stable over the past 24 hours at 11.6. Due to GI bleed, I would recommend gastroenterology evaluation. There is no acute surgical intervention required at this time.
[2020-12-03 16:57] LABS: Glucose,Whole Blood 117 mg/dL (75-99)
--- NOTE | 2020-12-03 18:05 | P.PN ---
Subjective Progress Note Date: 12/03/20 80 years old male with past medical history of hypertension, hyperlipidemia, diabetes mellitus, coronary artery disease status post stenting with 9 stents, prostate cancer. Patient presents because he noticed blood in his stool. Patient states that he has recent history of urinary retention status post indwelling Morelos catheter placed about 3 weeks ago and he follows up with Dr. vang. His PCP is Dr. Valdez and freelance writer Dr. Mayberry. He is on aspirin and Plavix for his coronary artery disease, stents placed for him last July and August this year as per patient He presents today because he noticed fresh blood with his loose stool from yesterday night, 1 episode yesterday and 3 episodes today. There was some amount of fresh blood with his loose stool. However no abdominal pain, no nausea vomiting. He denies chest pain or dyspnea. No dizziness. No other complaints. No fever No generalized weakness. He does not take NSAIDs other than as per Plavix. He is not on a blood thinner He has urine culture from 11/27 positive for pseudomonas and E. coli. From his visit to emergency room for decreased urine output that time Objective - Vital Signs Vital signs: Vital Signs Temp 98 F 12/03/20 07:29 Pulse 94 12/03/20 07:33 Resp 18 12/03/20 07:33 BP 119/71 12/03/20 07:29 Pulse Ox 98 12/03/20 07:29 Intake & Output 12/02/20 12/03/20 12/03/20 18:59 06:59 18:59 Intake Total 240 Output Total 600 Balance -600 240 Weight 106.141 kg 99.2 kg Intake: Oral 240 Output: Urine 600 Uretheral (Morelos) 600 Other: Voiding Method Indwelling Catheter Indwelling Catheter # Voids 3 # Bowel Movements 1 - Exam GENERAL: The patient is alert and oriented x3, not in any acute distress. Well developed, well nourished. HEENT: Pupils are round and equally reacting to light. EOMI. No scleral icterus. No conjunctival pallor. Normocephalic, atraumatic. No pharyngeal erythema. No thyromegaly. CARDIOVASCULAR: S1 and S2 present. No murmurs, rubs, or gallops. PULMONARY: Chest is clear to auscultation, no wheezing or crackles. ABDOMEN: Soft, nontender, nondistended, normoactive bowel sounds. No palpable organomegaly. MUSCULOSKELETAL: No joint swelling or deformity. EXTREMITIES: No cyanosis, clubbing, or pedal edema. NEUROLOGICAL: Gross neurological examination did not reveal any focal deficits. SKIN: No rashes. No petechiae - Labs CBC & Chem 7: 12/03/20 07:32 12/02/20 09:49 Labs: Abnormal Lab Results - Last 24 Hours (Table) 12/03/20 12/03/20 12/03/20 Range/Units 06:24 07:32 11:56 WBC 14.0 H (3.8-10.6) k/uL RBC 3.65 L (4.30-5.90) m/uL Hgb 11.6 L (13.0-17.5) gm/dL Hct 34.9 L (39.0-53.0) % Neutrophils # 10.9 H (1.3-7.7) k/uL POC Glucose (mg/dL) 125 H 137 H (75-99) mg/dL Microbiology - Last 24 Hours (Table) 12/02/20 09:49 Blood Culture - Preliminary Blood No Growth after 24 hours 12/02/20 09:49 Blood Culture - Preliminary Blood No Growth after 24 hours 12/02/20 09:49 Urine Culture - Preliminary Urine,Voided Assessment and Plan Assessment: Acute GI bleed Loss anemia secondary to above Acute tract infection Diabetes mellitus Hypertension Hyperlipidemia Chronic kidney disease stage III histoty Of coronary artery disease status post 9 stents Plan: this is a pleasant 80 years old male who presents with possible GI bleed.Also with UTI Admit the patient to select unit Continue with Protonix IV. Monitor hemoglobin and vitals. surgery team consult with Dr. Hoyos continuous ceftazidime. And consult infectious disease team Cardiology team consult for recent stent placement he has borderline blood pressure, not hypertensive so we'll not start his antihypertensive medication currently and keep monitoring. Hold Norvasc, enalapril and terazosin . Continue with metoprolol 25 mg daily and change Crestor to Lipitor. Hold metformin and continue with insulin sliding scale Labs and medications were reviewed. Continue with symptomatic treatment. Resume home medication. Monitor lytes and vitals. DVT and GI prophylaxis. Further recommendations depends on the clinical course of the patient DVT prophylaxis: no Subcutaneous heparin GI Prophylaxis: Ppi PT/OT: Pending Prognosis is guarded
[2020-12-03 20:22] LABS: Glucose,Whole Blood 155 mg/dL (75-99)
--- NOTE | 2020-12-03 23:15 | PN ---
PROGRESS NOTE DATE OF SERVICE: 12/03/2020 REASON FOR FOLLOW UP: Catheter associated urinary tract infection. INTERVAL HISTORY: Patient is afebrile. The patient is breathing comfortably. Denies any further bleeding per rectum. No chest pain, shortness of breath or cough. No abdominal pain. His Morelos catheter has been changed without any difficulty. PHYSICAL EXAMINATION: Blood pressure 142/80 with a pulse of 77, temperature 98.6. He is 99% room air. General description is an elderly male lying in bed in no distress. Respiratory system: Unlabored breathing, clear to auscultation anteriorly. Heart S1, S2. Regular rate and rhythm. Abdomen soft, no tenderness. Extremities: No edema of the feet. LABS: Hemoglobin is 11.1, white count 14,000, urine showing gram-negative. Blood culture has been negative. DIAGNOSTIC IMPRESSION AND PLAN: Patient with a gram-negative catheter associated urinary tract infection for which the patient is currently covered with Fortaz and antibiotic will be adjusted further based on the culture report. Continue supportive care. MMODL / IJN: [id number] /
[2020-12-04 07:08] LABS: Basophils % (A) 1 %; Eosinophils # (A) 0.5 k/uL (0-0.7); Eosinophils % (A) 7 %; HCT 31.4 % (39.0-53.0); HGB 10.7 gm/dL (13.0-17.5); Lymphocytes # (A) 1.2 k/uL (1.0-4.8); Lymphocytes % (A) 15 %; MCH 32.2 pg (25.0-35.0); MCHC 34.2 g/dL (31.0-37.0); Mean Platelet Volume 7.5; Monocytes # (A) 0.6 k/uL (0-1.0); Monocytes % (A) 8 %; Neutrophils # (A) 5.3 k/uL (1.3-7.7); Neutrophils % (A) 68 %; Platelet Count 316 k/uL (150-450); RBC 3.34 m/uL (4.30-5.90); RDW 14.6 % (11.5-15.5); WBC 7.8 k/uL (3.8-10.6)
[2020-12-04 07:10] LABS: Glucose,Whole Blood 122 mg/dL (75-99)
[2020-12-04 07:23] LABS: Calcium 9.5 mg/dL (8.4-10.2); Potassium 4.6 mmol/L (3.5-5.1)
[2020-12-04] MEDS: INSULIN ASPART (NovoLOG) 100 UNIT/ML VIAL SQ SCH ×4 (08:05→21:22)
[2020-12-04] MEDS: PANTOPRAZOLE 40 MG/10 ML VIAL IV SCH ×2 (08:34→21:20)
[2020-12-04] MEDS: METOPROLOL SUCCINATE (ER) 25 MG TAB.ER.24H PO SCH (08:34)
[2020-12-04] MEDS: FENOFIBRATE 160 MG TAB PO SCH (08:34)
[2020-12-04] MEDS: EZETIMIBE 10 MG TAB PO SCH (08:34)
--- NOTE | 2020-12-04 09:43 | P.PN ---
Subjective Progress Note Date: 12/04/20 HISTORY OF PRESENT ILLNESS: This is a pleasant 80-year-old female past medical history significant for hypertension, hyperlipidemia, type 2 diabetes mellitus, myocardial infarction in July 2020, coronary artery disease status post stenting in 2007, and most recently July 2020 and August 2020, prostate cancer. He follows with Dr. Bautista at [facility]. We have been asked to see in consultation for recent stent with GI bleed. Patient presents to the emergency department due to blood in his stool. He noticed dark and bright red blood in his loose stool started on Sunday and continuously every bowel movement until Today. Patient states that he has recent history of urinary retention status post indwelling mcknight catheter placed about 3 weeks ago. It urine was pale yellow color and now is blood tinged. He denies chest pain, shortness of breath, lightheadedness, dizziness, syncope or pre- syncope. Denies symptoms of orthopnea or PND. He is a non smoker. Denies alcohol use. His cardiac history includes abnormal stress test in 2007, subsequently underwent cardiac catheterization with stents placed. July 2020 he was told he did have a "small heart attack" and underwent cardiac catheterization with 1 stent placed, he was told there were also other blockage. He was taken back to the dye lab technician in August 2020 to have 2 more stents placed. He follows closely with his salmon gillnet vessel operator. Total of 9 stents he states. Has undergone echocardiogram and has been told his LV function is ok/stable. DIAGNOSTICS Telemetry tracings indicate sinus mechanism HR 90-low 100s Laboratory reviewed, WBC 9.5, hemoglobin 11.7, platelets 332, sodium 138, potassium 4.7, BUN 33, serum creatinine 1.4 Current home cardiac medications include amlodipine 5 mg daily, Crestor 5 mg nightly, metoprolol succinate 25 mg daily, Zetia 10 mg daily, enalapril 10 mg daily, Plavix 75 mg daily, aspirin 81 mg twice a day. 12/04/2020 Patient examined this morning at the bedside. Patient denies chest pain or pressure. He denies shortness of breath. Patient states he has not had any further bowel movements since yesterday. He is requesting to be seen by Dr. Morales. His aspirin and Plavix remain on hold pending further evaluation by surgery/GI. PHYSICAL EXAM: VITAL SIGNS: Reviewed. GENERAL: Well-developed in no acute distress. NECK: Supple. No JVD or thyromegaly LUNGS: Respirations even and unlabored. Lungs essentially clear to auscultation bilaterally. HEART: Regular rate and rhythm. S1 and S2 heard. EXTREMITIES: Normal range of motion. No clubbing or cyanosis. Peripheral pulses intact. No lower extremity edema ASSESSMENT: GI bleed Hematuria Urinary tract infection Coronary artery disease s/p PCI in 2007, July 2020 and August 2020, states he has had a total of 9 stents Hypertension Type 2 Diabetes Hyperlipidemia Acute on Chronic kidney disease PLAN: Continue to monitor hemoglobin Aspirin and Plavix remain on hold until further evaluation by surgery/GI Will consult urology due to patient request Continue to hold oscar secondary to REGAN. Monitor kidney function Further recommendations pending patient's course Nurse practitioner note has been reviewed by physician. Signing provider agrees with the documented findings, assessment, and plan of care. Objective - Vital Signs Vital signs: Vital Signs Temp 98.2 F 12/04/20 04:40 Pulse 75 12/04/20 04:40 Resp 18 12/04/20 04:40 BP 133/77 12/04/20 04:40 Pulse Ox 98 12/04/20 04:40 Intake & Output 12/03/20 12/04/20 12/04/20 18:59 06:59 18:59 Intake Total 581 50 Output Total 1300 1875 Balance -580 -3496 Intake: Intake, IV Titration 50 Amount cefTAZidime 1 gm In 50 Sodium Chloride 0.9% 50 ml @ 12.5 mls/hr IVPB Q8H [facility] Rx#:[id number] Oral 581 0 Output: Urine 1300 1875 Uretheral (Mcknight) 1000 Other: Voiding Method Indwelling Catheter Indwelling Catheter Indwelling Catheter # Voids 2 - Labs CBC & Chem 7: 12/04/20 06:16 12/04/20 06:16 Labs: Abnormal Lab Results - Last 24 Hours (Table) 12/03/20 12/03/20 12/03/20 Range/Units 11:56 16:55 20:21 RBC (4.30-5.90) m/uL Hgb (13.0-17.5) gm/dL Hct (39.0-53.0) % Glucose (74-99) mg/dL POC Glucose (mg/dL) 137 H 117 H 155 H (75-99) mg/dL 12/04/20 12/04/20 12/04/20 Range/Units 06:16 06:16 07:09 RBC 3.34 L (4.30-5.90) m/uL Hgb 10.7 L (13.0-17.5) gm/dL Hct 31.4 L (39.0-53.0) % Glucose 114 H (74-99) mg/dL POC Glucose (mg/dL) 122 H (75-99) mg/dL Microbiology - Last 24 Hours (Table) 12/02/20 09:49 Urine Culture - Preliminary Urine,Voided Gram Neg Bacilli 12/02/20 09:49 Blood Culture - Preliminary Blood No Growth after 24 hours 12/02/20 09:49 Blood Culture - Preliminary Blood No Growth after 24 hours
--- NOTE | 2020-12-04 09:57 | P.PN ---
Subjective Progress Note Date: 12/04/20 Patient seen and examined at bedside. Denies any bowel movements over the past 24 hours. States he is having flatus. Tolerating clear liquid diet. Denies abdominal pain. Hemoglobin 10.7. Objective - Vital Signs Vital signs: Vital Signs Temp 98.2 F 12/04/20 04:40 Pulse 75 12/04/20 04:40 Resp 18 12/04/20 04:40 BP 133/77 12/04/20 04:40 Pulse Ox 98 12/04/20 04:40 Intake & Output 12/03/20 12/04/20 12/04/20 18:59 06:59 18:59 Intake Total 581 50 Output Total 1300 1875 Balance -369 -7402 Intake: Intake, IV Titration 50 Amount cefTAZidime 1 gm In 50 Sodium Chloride 0.9% 50 ml @ 12.5 mls/hr IVPB Q8H [facility] Rx#:[id number] Oral 581 0 Output: Urine 1300 1875 Uretheral (Morelos) 1000 Other: Voiding Method Indwelling Catheter Indwelling Catheter Indwelling Catheter # Voids 2 - Constitutional General appearance: Present: cooperative, no acute distress - Gastrointestinal Gastrointestinal Comment(s): Soft, nontender, nondistended, no rebound, no guarding - Psychiatric Psychiatric: Present: A&O x's 3 - Labs CBC & Chem 7: 12/04/20 06:16 12/04/20 06:16 Labs: Abnormal Lab Results - Last 24 Hours (Table) 12/03/20 12/03/20 12/03/20 Range/Units 11:56 16:55 20:21 RBC (4.30-5.90) m/uL Hgb (13.0-17.5) gm/dL Hct (39.0-53.0) % Glucose (74-99) mg/dL POC Glucose (mg/dL) 137 H 117 H 155 H (75-99) mg/dL 12/04/20 12/04/20 12/04/20 Range/Units 06:16 06:16 07:09 RBC 3.34 L (4.30-5.90) m/uL Hgb 10.7 L (13.0-17.5) gm/dL Hct 31.4 L (39.0-53.0) % Glucose 114 H (74-99) mg/dL POC Glucose (mg/dL) 122 H (75-99) mg/dL Microbiology - Last 24 Hours (Table) 12/02/20 09:49 Urine Culture - Preliminary Urine,Voided Gram Neg Bacilli 12/02/20 09:49 Blood Culture - Preliminary Blood No Growth after 24 hours 12/02/20 09:49 Blood Culture - Preliminary Blood No Growth after 24 hours Assessment and Plan Plan: 80-year-old male with lower GI bleed. This appears to be resolving as the patient has not had any bloody bowel movements over the past 24 hours. Hemoglobin is 10.7 from 11.6. GI services are unavailable this weekend. Continue to hold anticoagulation. Urology consult was placed today for evaluation of Morelos catheter removal.
[2020-12-04 11:43] LABS: Glucose,Whole Blood 136 mg/dL (75-99)
[2020-12-04] MEDS ORDERED: cefTAZidime 2 GM in SODIUM CHLORIDE 0.9% 50 ML IVPB SCH (16:00)
--- NOTE | 2020-12-04 16:45 | P.GSCN ---
History of Present Illness Consult date: 12/04/20 History of present illness: This is an 80-year-old gentleman in the hospital with a GI bleed. We're asked see the patient for urine retention and hematuria. The patient saw a few weeks ago for urine retention. A catheters placed. An states that he was having problems urinating. He does not really give much more history than that. The catheter was removed within the last 24 hours. Never seen a previous urologist. He denies previous urinary tract problems. He denies knowledge in follow-up for his urine retention or follow-up with . He does seem somewhat confused about his urinary tract issues. He states that he has had problems with incontinence and difficulty urination prior to the urine retention. The urinalysis showed 182 white cell 182 red blood cells. Catheter is not in place at present. He cannot give any more history than that. Review of Systems ROS unobtainable: due to mental status Past Medical History Past Medical History: Coronary Artery Disease (CAD), Cancer, Diabetes Mellitus, Hyperlipidemia, Hypertension, Myocardial Infarction (SD), Osteoarthritis (OA) Additional Past Medical History / Comment(s): prostate cancer Last Myocardial Infarction Date:: July 2020 History of Any Multi-Drug Resistant Organisms: Other MDRO Past Surgical History: Heart Catheterization With Stent Additional Past Surgical History / Comment(s): 9 stents Past Anesthesia/Blood Transfusion Reactions: No Reported Reaction Date of Last Stent Placement:: July 2020 Past Psychological History: No Psychological Hx Reported Smoking Status: Former smoker Past Alcohol Use History: Occasional Past Drug Use History: None Reported Medications and Allergies Home Medications Medication Instructions Recorded Confirmed Type Aspirin EC [Ecotrin Low Dose] 81 mg PO BID 11/18/20 12/02/20 History Cholecalciferol [Vitamin D3 (25 25 mcg PO DAILY 11/18/20 12/02/20 History Mcg = 1000 Iu)] Clopidogrel [Plavix] 75 mg PO DAILY 11/18/20 12/02/20 History Cyanocobalamin (Vitamin B-12) 1,000 mcg PO DAILY 11/18/20 12/02/20 History [Vitamin B-12] Enalapril [Vasotec] 10 mg PO DAILY 11/18/20 12/02/20 History Ezetimibe [Zetia] 10 mg PO DAILY 11/18/20 12/02/20 History Gemfibrozil [Lopid] 600 mg PO BID 11/18/20 12/02/20 History Metoprolol Succinate (ER) [Toprol 25 mg PO DAILY 11/18/20 12/02/20 History XL] Multivit-Min/FA/Lycopen/Lutein 1 tab PO DAILY 11/18/20 12/02/20 History [Centrum Silver Men Tablet] Rosuvastatin Calcium [Crestor] 5 mg PO HS 11/18/20 12/02/20 History Terazosin [Hytrin] 5 mg PO DAILY 11/18/20 12/02/20 History amLODIPine [Norvasc] 5 mg PO DAILY 11/18/20 12/02/20 History metFORMIN HCL [Glucophage] 500 mg PO BID 11/18/20 12/02/20 History Cephalexin [Keflex] 500 mg PO Q12HR #20 cap 11/27/20 12/02/20 Rx Allergies Allergy/AdvReac Type Severity Reaction Status Date / Time Penicillins AdvReac Rash/Hives Verified 12/02/20 09:22 Sulfa (Sulfonamide AdvReac Rash/Hives Verified 12/02/20 09:22 Antibiotics) Surgical - Exam Vital Signs Temp Pulse Resp BP Pulse Ox 97.5 F L 99 18 123/77 97 12/02/20 09:19 12/02/20 09:19 12/02/20 09:19 12/02/20 09:19 12/02/20 09:19 - General Patient appears somewhat icteric well developed, well nourished, obese - Eyes PERRL - ENT no hearing loss - Neck no masses - Respiratory normal expansion, normal respiratory effort - Cardiovascular Rhythm: regular - Abdomen Abdomen: soft, non tender - Genitourinary normal penis with no external lesions, testicles present - Neurologic normal coordination, normal sensation - Musculoskeletal normal posture - Psychiatric His history is quite vague oriented to time, oriented to person, oriented to place Results - Labs 12/04/20 06:16 12/04/20 06:16 Abnormal Lab Results - Last 24 Hours (Table) 12/03/20 12/03/20 12/04/20 Range/Units 16:55 20:21 06:16 RBC 3.34 L (4.30-5.90) m/uL Hgb 10.7 L (13.0-17.5) gm/dL Hct 31.4 L (39.0-53.0) % Glucose (74-99) mg/dL POC Glucose (mg/dL) 117 H 155 H (75-99) mg/dL 12/04/20 12/04/20 12/04/20 Range/Units 06:16 07:09 11:43 RBC (4.30-5.90) m/uL Hgb (13.0-17.5) gm/dL Hct (39.0-53.0) % Glucose 114 H (74-99) mg/dL POC Glucose (mg/dL) 122 H 136 H (75-99) mg/dL Microbiology - Last 24 Hours (Table) 12/02/20 09:49 Blood Culture - Preliminary Blood No Growth after 48 hours 12/02/20 09:49 Blood Culture - Preliminary Blood No Growth after 48 hours 12/02/20 09:49 Urine Culture - Final Urine,Voided Pseudomonas aeruginosa Diabetes panel 12/04/20 Range/Units 06:16 Sodium 137 (137-145) mmol/L Potassium 4.6 (3.5-5.1) mmol/L Chloride 106 (98-107) mmol/L Carbon Dioxide 22 (22-30) mmol/L BUN 18 (9-20) mg/dL Creatinine 1.12 (0.66-1.25) mg/dL Glucose 114 H (74-99) mg/dL Calcium 9.5 (8.4-10.2) mg/dL Calcium panel 12/04/20 Range/Units 06:16 Calcium 9.5 (8.4-10.2) mg/dL Pituitary panel 12/04/20 Range/Units 06:16 Sodium 137 (137-145) mmol/L Potassium 4.6 (3.5-5.1) mmol/L Chloride 106 (98-107) mmol/L Carbon Dioxide 22 (22-30) mmol/L BUN 18 (9-20) mg/dL Creatinine 1.12 (0.66-1.25) mg/dL Glucose 114 H (74-99) mg/dL Calcium 9.5 (8.4-10.2) mg/dL Adrenal panel 12/04/20 Range/Units 06:16 Sodium 137 (137-145) mmol/L Potassium 4.6 (3.5-5.1) mmol/L Chloride 106 (98-107) mmol/L Carbon Dioxide 22 (22-30) mmol/L BUN 18 (9-20) mg/dL Creatinine 1.12 (0.66-1.25) mg/dL Glucose 114 H (74-99) mg/dL Calcium 9.5 (8.4-10.2) mg/dL Assessment and Plan Assessment: Impression: Urinary retention status not clear. Hematuria probably secondary to urinary tract infection. GI bleed. Recommendations: I suspect the hematuria is due to the urinary tract infection. The urine retention status is not clear. He cannot give me a clear history as to why the catheter in order when it came out. I'll obtain a urinary residual see how he is emptying. We will follow the patient with you.
[2020-12-04 17:11] LABS: Glucose,Whole Blood 107 mg/dL (75-99)
--- NOTE | 2020-12-04 17:24 | PN ---
PROGRESS NOTE DATE OF SERVICE: 12/04/2020 REASON FOR FOLLOWUP: Pseudomonas catheter associated urinary tract infection. INTERVAL HISTORY: Patient is afebrile. The patient is breathing comfortably. Patient denies having any chest pain. No shortness of breath or cough. No nausea, vomiting. No abdominal pain or diarrhea. PHYSICAL EXAMINATION: Blood pressure is 145/79 with a pulse of 57, temperature 98.3. He is 97% on room air. General description is an elderly male lying in bed in no distress. Respiratory system: Unlabored breathing, clear to auscultation anteriorly. Heart S1, S2. Regular rate and rhythm. Abdomen: Soft, no tenderness. Extremities are no edema of feet. LABS: Hemoglobin is 10.7, white count 7.9, creatinine 1.12. Urine showing Pseudomonas. DIAGNOSTIC IMPRESSION AND PLAN: Patient with Pseudomonas catheter urinary tract infection in this patient whose Morelos catheter has been changed. Fortaz should be adjusted to 2 grams q.8 hours. Urine will be repeated and monitor clinical course closely. MMODL / IJN: [id number] /
[2020-12-04 18:46] LABS: Appearance,Urine Clear (Clear); Bilirubin,Urine Negative (Negative); Blood,Urine Moderate (Negative); Color,Urine Light Yellow; Glucose,Urine (UA) Negative (Negative); Hyaline Casts,Urine 1 /lpf (0-2); Ketones,Urine Negative (Negative); Leukocyte Esterase,Urine Small (Negative); Mucus,Urine Rare /hpf; Nitrite,Urine Negative (Negative); PH, Urine 5.5 (5.0-8.0); Protein,Urine Negative (Negative); RBC,Urine 7 /hpf (0-5); Specific Gravity,Urine 1.006 (1.001-1.035); Urobilinogen,Urine <2.0 mg/dL (<2.0); WBC,Urine 2 /hpf (0-5)
[2020-12-04 20:27] LABS: Glucose,Whole Blood 175 mg/dL (75-99)
[2020-12-05 07:05] LABS: Glucose,Whole Blood 129 mg/dL (75-99)
[2020-12-05 09:30] LABS: Basophils # (A) 0.1 k/uL (0-0.2); Basophils % (A) 1 %; Eosinophils # (A) 0.5 k/uL (0-0.7); Eosinophils % (A) 5 %; HCT 32.4 % (39.0-53.0); HGB 10.7 gm/dL (13.0-17.5); Lymphocytes % (A) 12 %; MCH 31.2 pg (25.0-35.0); MCHC 33.1 g/dL (31.0-37.0); MCV 94.3 fL (80.0-100.0); Mean Platelet Volume 8.5; Monocytes # (A) 0.6 k/uL (0-1.0); Monocytes % (A) 6 %; Neutrophils # (A) 6.7 k/uL (1.3-7.7); Neutrophils % (A) 75 %; Platelet Count 289 k/uL (150-450); RBC 3.44 m/uL (4.30-5.90); RDW 14.2 % (11.5-15.5); WBC 8.9 k/uL (3.8-10.6)
[2020-12-05] MEDS: INSULIN ASPART (NovoLOG) 100 UNIT/ML VIAL SQ SCH ×4 (09:30→20:36)
[2020-12-05] MEDS: PANTOPRAZOLE 40 MG/10 ML VIAL IV SCH ×2 (09:43→20:36)
[2020-12-05] MEDS: FENOFIBRATE 160 MG TAB PO SCH (09:43)
[2020-12-05] MEDS: EZETIMIBE 10 MG TAB PO SCH (09:43)
[2020-12-05] MEDS: METOPROLOL SUCCINATE (ER) 25 MG TAB.ER.24H PO SCH (09:43)
--- NOTE | 2020-12-05 10:08 | P.PN ---
Subjective Progress Note Date: 12/05/20 Patient seen and examined at bedside. No acute events. Did have a bowel movement this morning that was nonbloody. Hemoglobin is 10.7 today from 10.7 yesterday. No acute events. Objective - Vital Signs Vital signs: Vital Signs Temp 98.3 F 12/05/20 04:46 Pulse 67 12/05/20 04:46 Resp 16 12/05/20 04:46 BP 157/85 12/05/20 04:46 Pulse Ox 97 12/05/20 04:46 Intake & Output 12/04/20 12/05/20 12/05/20 18:59 06:59 18:59 Intake Total 150 Output Total 1300 1650 Balance -1150 -1650 Intake: Intake, IV Titration 150 Amount cefTAZidime 1 gm In 50 Sodium Chloride 0.9% 50 ml @ 12.5 mls/hr IVPB Q8H [facility] Rx#:[id number] cefTAZidime 2 gm In 100 Sodium Chloride 0.9% 100 ml @ 25 mls/hr IVPB Q8H [facility] Rx#:[id number] Output: Urine 1300 1650 Other: Voiding Method Indwelling Catheter Indwelling Catheter # Bowel Movements 1 - Constitutional General appearance: Present: cooperative - Gastrointestinal Gastrointestinal Comment(s): Soft, nontender - Psychiatric Psychiatric: Present: A&O x's 3 - Labs CBC & Chem 7: 12/05/20 09:18 12/04/20 06:16 Labs: Abnormal Lab Results - Last 24 Hours (Table) 12/04/20 12/04/20 12/04/20 Range/Units 11:43 17:10 18:10 RBC (4.30-5.90) m/uL Hgb (13.0-17.5) gm/dL Hct (39.0-53.0) % POC Glucose (mg/dL) 136 H 107 H (75-99) mg/dL Urine Blood Moderate H (Negative) Ur Leukocyte Esterase Small H (Negative) Urine RBC 7 H (0-5) /hpf Urine Mucus Rare H (None) /hpf 12/04/20 12/05/20 12/05/20 Range/Units 20:24 07:03 09:18 RBC 3.44 L (4.30-5.90) m/uL Hgb 10.7 L (13.0-17.5) gm/dL Hct 32.4 L (39.0-53.0) % POC Glucose (mg/dL) 175 H 129 H (75-99) mg/dL Urine Blood (Negative) Ur Leukocyte Esterase (Negative) Urine RBC (0-5) /hpf Urine Mucus (None) /hpf Microbiology - Last 24 Hours (Table) 12/02/20 09:49 Blood Culture - Preliminary Blood No Growth after 48 hours 12/02/20 09:49 Blood Culture - Preliminary Blood No Growth after 48 hours 12/02/20 09:49 Urine Culture - Final Urine,Voided Pseudomonas aeruginosa Assessment and Plan Plan: 80-year-old male with resolution of blood in stool. Okay to advance diet. Would recommend GI evaluation due to history of GI bleed when GI services are available. No plan for any acute surgical intervention at this time. Please call for further evaluation if any changes in clinical progress..
[2020-12-05 11:30] LABS: Glucose,Whole Blood 167 mg/dL (75-99)
--- NOTE | 2020-12-05 12:16 | P.PN ---
Subjective Progress Note Date: 12/04/20 Principal diagnosis: Acute GI bleed Acute blood Loss anemia Acute UTI 80 years old male with past medical history of hypertension, hyperlipidemia, diabetes mellitus, coronary artery disease status post stenting with 9 stents, prostate cancer. Patient presents because he noticed blood in his stool. Patient states that he has recent history of urinary retention status post indwelling Morelos catheter placed about 3 weeks ago and he follows up with Dr. vang. His PCP is Dr. Valdez and boss dyer Dr. Mayberry. He is on aspirin and Plavix for his c oronary artery disease, stents placed for him last July and August this year as per patient He presents today because he noticed fresh blood with his loose stool from yesterday night, 1 episode yesterday and 3 episodes today. There was some amount of fresh blood with his loose stool. However no abdominal pain, no nausea vomiting. He denies chest pain or dyspnea. No dizziness. No other complaints. No fever No generalized weakness. He does not take NSAIDs other than as per Plavix. He is not on a blood thinner He has urine culture from 11/27 positive for pseudomonas and E. coli. From his visit to emergency room for decreased urine output that time 12/04/2020 Patient is seen and evaluated resting comfortably in bed with family at bedside; denies any further episodes of bleeding Vital signs are reviewed and are stable; lab review shows a hemoglobin of 10.7 with hematocrit 31.4 which is stable from yesterday; sodium 137, potassium 4.6, BUN of 20 to with creatinine of 1.12 Antiplatelet therapy remains on hold; general surgery on board; GI bleed currently resolved and no further interventions recommended at this time Patient requesting urology consultation for indwelling Morelos catheter; await recommendations Objective - Vital Signs Vital signs: Vital Signs Temp 98.3 F 12/04/20 12:58 Pulse 67 12/04/20 12:58 Resp 17 12/04/20 12:58 BP 145/79 12/04/20 12:58 Pulse Ox 97 12/04/20 12:58 Intake & Output 12/03/20 12/04/20 12/04/20 18:59 06:59 18:59 Intake Total 581 50 Output Total 1300 1875 Balance -718 -3131 Intake: Intake, IV Titration 50 Amount cefTAZidime 1 gm In 50 Sodium Chloride 0.9% 50 ml @ 12.5 mls/hr IVPB Q8H [facility] Rx#:[id number] Oral 581 0 Output: Urine 1300 1875 Uretheral (Morelos) 1000 Other: Voiding Method Indwelling Catheter Indwelling Catheter Indwelling Catheter # Voids 2 - Exam GENERAL: The patient is alert and oriented x3, not in any acute distress. Well developed, well nourished. HEENT: Pupils are round and equally reacting to light. EOMI. No scleral icterus. No conjunctival pallor. Normocephalic, atraumatic. No pharyngeal erythema. No thyromegaly. CARDIOVASCULAR: S1 and S2 present. No murmurs, rubs, or gallops. PULMONARY: Chest is clear to auscultation, no wheezing or crackles. ABDOMEN: Soft, nontender, nondistended, normoactive bowel sounds. No palpable organomegaly. MUSCULOSKELETAL: No joint swelling or deformity. EXTREMITIES: No cyanosis, clubbing, or pedal edema. NEUROLOGICAL: Gross neurological examination did not reveal any focal deficits. SKIN: No rashes. No petechiae - Labs CBC & Chem 7: 12/05/20 09:18 12/04/20 06:16 Labs: Abnormal Lab Results - Last 24 Hours (Table) 12/03/20 12/03/20 12/04/20 Range/Units 16:55 20:21 06:16 RBC 3.34 L (4.30-5.90) m/uL Hgb 10.7 L (13.0-17.5) gm/dL Hct 31.4 L (39.0-53.0) % Glucose (74-99) mg/dL POC Glucose (mg/dL) 117 H 155 H (75-99) mg/dL 12/04/20 12/04/20 12/04/20 Range/Units 06:16 07:09 11:43 RBC (4.30-5.90) m/uL Hgb (13.0-17.5) gm/dL Hct (39.0-53.0) % Glucose 114 H (74-99) mg/dL POC Glucose (mg/dL) 122 H 136 H (75-99) mg/dL Microbiology - Last 24 Hours (Table) 12/02/20 09:49 Blood Culture - Preliminary Blood No Growth after 48 hours 12/02/20 09:49 Blood Culture - Preliminary Blood No Growth after 48 hours 12/02/20 09:49 Urine Culture - Final Urine,Voided Pseudomonas aeruginosa Assessment and Plan Assessment: Acute GI bleed Loss anemia secondary to above Acute tract infection Diabetes mellitus Hypertension Hyperlipidemia Chronic kidney disease stage III histoty Of coronary artery disease status post 9 stents Plan: this is a pleasant 80 years old male who presents with possible GI bleed.Also with UTI Admit the patient to select unit Continue with Protonix IV. Monitor hemoglobin and vitals. surgery team consult with Dr. Hoyos continuous ceftazidime. And consult infectious disease team Cardiology team consult for recent stent placement he has borderline blood pressure, not hypertensive so we'll not start his antihypertensive medication currently and keep monitoring. Hold Norvasc, enalapril and terazosin . Continue with metoprolol 25 mg daily and change Crestor to Lipitor. Hold metformin and continue with insulin sliding scale Labs and medications were reviewed. Continue with symptomatic treatment. Resume home medication. Monitor lytes and vitals. DVT and GI prophylaxis. Further recommendations depends on the clinical course of the patient DVT prophylaxis: no Subcutaneous heparin GI Prophylaxis: Ppi PT/OT: Pending Prognosis is guarded
--- NOTE | 2020-12-05 12:40 | P.PN ---
Subjective Progress Note Date: 12/05/20 HISTORY OF PRESENT ILLNESS: This is a pleasant 80-year-old female past medical history significant for hypertension, hyperlipidemia, type 2 diabetes mellitus, myocardial infarction in July 2020, coronary artery disease status post stenting in 2007, and most recently July 2020 and August 2020, prostate cancer. He follows with Dr. Bautista at [facility]. We have been asked to see in consultation for recent stent with GI bleed. Patient presents to the emergency department due to blood in his stool. He noticed dark and bright red blood in his loose stool started on Sunday and continuously every bowel movement until Today. Patient states that he has recent history of urinary retention status post indwelling mcknight catheter placed about 3 weeks ago. It urine was pale yellow color and now is blood tinged. He denies chest pain, shortness of breath, lightheadedness, dizziness, syncope or pre- syncope. Denies symptoms of orthopnea or PND. He is a non smoker. Denies alcohol use. His cardiac history includes abnormal stress test in 2007, subsequently underwent cardiac catheterization with stents placed. July 2020 he was told he did have a "small heart attack" and underwent cardiac catheterization with 1 stent placed, he was told there were also other blockage. He was taken back to the computer lab para professional in August 2020 to have 2 more stents placed. He follows closely with his claims attorney. Total of 9 stents he states. Has undergone echocardiogram and has been told his LV function is ok/stable. DIAGNOSTICS Telemetry tracings indicate sinus mechanism HR 90-low 100s Laboratory reviewed, WBC 9.5, hemoglobin 11.7, platelets 332, sodium 138, potassium 4.7, BUN 33, serum creatinine 1.4 Current home cardiac medications include amlodipine 5 mg daily, Crestor 5 mg nightly, metoprolol succinate 25 mg daily, Zetia 10 mg daily, enalapril 10 mg daily, Plavix 75 mg daily, aspirin 81 mg twice a day. 12/04/2020 Patient examined this morning at the bedside. Patient denies chest pain or pressure. He denies shortness of breath. Patient states he has not had any further bowel movements since yesterday. He is requesting to be seen by Dr. Morales. His aspirin and Plavix remain on hold pending further evaluation by surgery/GI. 12/05/2020 Patient examined this morning at the bedside. Patient denies chest pain or pressure. He denies short of breath. He denies any further episodes of bleeding in his stools. Hemoglobin this morning is stable at 10.7. PHYSICAL EXAM: VITAL SIGNS: Reviewed. GENERAL: Well-developed in no acute distress. NECK: Supple. No JVD or thyromegaly LUNGS: Respirations even and unlabored. Lungs essentially clear to auscultation bilaterally. HEART: Regular rate and rhythm. S1 and S2 heard. EXTREMITIES: Normal range of motion. No clubbing or cyanosis. Peripheral pulses intact. No lower extremity edema ASSESSMENT: GI bleed Hematuria Urinary tract infection Coronary artery disease s/p PCI in 2007, July 2020 and August 2020, states he has had a total of 9 stents Hypertension Type 2 Diabetes Hyperlipidemia Acute on Chronic kidney disease PLAN: Continue to monitor hemoglobin Aspirin and Plavix remain on hold. Check hemoglobin tomorrow. If stable, will consider resuming aspirin and plavix Continue to hold oscar secondary to REGAN. Monitor kidney function. Resume when REGAN resolved Further recommendations pending patient's course Nurse practitioner note has been reviewed by physician. Signing provider agrees with the documented findings, assessment, and plan of care. Objective - Vital Signs Vital signs: Vital Signs Temp 98.2 F 12/05/20 11:33 Pulse 69 12/05/20 11:33 Resp 17 12/05/20 11:33 BP 165/83 12/05/20 11:33 Pulse Ox 97 12/05/20 11:33 Intake & Output 12/04/20 12/05/20 12/05/20 18:59 06:59 18:59 Intake Total 150 Output Total 1300 1650 Balance -1150 -1650 Intake: Intake, IV Titration 150 Amount cefTAZidime 1 gm In 50 Sodium Chloride 0.9% 50 ml @ 12.5 mls/hr IVPB Q8H [facility] Rx#:[id number] cefTAZidime 2 gm In 100 Sodium Chloride 0.9% 100 ml @ 25 mls/hr IVPB Q8H [facility] Rx#:[id number] Output: Urine 1300 1650 Other: Voiding Method Indwelling Catheter Indwelling Catheter Indwelling Catheter # Bowel Movements 1 - Labs CBC & Chem 7: 12/05/20 09:18 12/04/20 06:16 Labs: Abnormal Lab Results - Last 24 Hours (Table) 12/04/20 12/04/20 12/04/20 Range/Units 17:10 18:10 20:24 RBC (4.30-5.90) m/uL Hgb (13.0-17.5) gm/dL Hct (39.0-53.0) % POC Glucose (mg/dL) 107 H 175 H (75-99) mg/dL Urine Blood Moderate H (Negative) Ur Leukocyte Esterase Small H (Negative) Urine RBC 7 H (0-5) /hpf Urine Mucus Rare H (None) /hpf 12/05/20 12/05/20 12/05/20 Range/Units 07:03 09:18 11:29 RBC 3.44 L (4.30-5.90) m/uL Hgb 10.7 L (13.0-17.5) gm/dL Hct 32.4 L (39.0-53.0) % POC Glucose (mg/dL) 129 H 167 H (75-99) mg/dL Urine Blood (Negative) Ur Leukocyte Esterase (Negative) Urine RBC (0-5) /hpf Urine Mucus (None) /hpf Microbiology - Last 24 Hours (Table) 12/02/20 09:49 Blood Culture - Preliminary Blood No Growth after 48 hours 12/02/20 09:49 Blood Culture - Preliminary Blood No Growth after 48 hours 12/02/20 09:49 Urine Culture - Final Urine,Voided Pseudomonas aeruginosa
[2020-12-05 17:31] LABS: Glucose,Whole Blood 102 mg/dL (75-99)
--- NOTE | 2020-12-05 18:56 | P.PN ---
Subjective Progress Note Date: 12/05/20 Principal diagnosis: Acute GI bleed Acute blood Loss anemia Acute UTI 80 years old male with past medical history of hypertension, hyperlipidemia, diabetes mellitus, coronary artery disease status post stenting with 9 stents, prostate cancer. Patient presents because he noticed blood in his stool. Patient states that he has recent history of urinary retention status post indwelling Morelos catheter placed about 3 weeks ago and he follows up with Dr. vang. His PCP is Dr. Valdez and supervisory investigative specialist Dr. Mayberry. He is on aspirin and Plavix for his c oronary artery disease, stents placed for him last July and August this year as per patient He presents today because he noticed fresh blood with his loose stool from yesterday night, 1 episode yesterday and 3 episodes today. There was some amount of fresh blood with his loose stool. However no abdominal pain, no nausea vomiting. He denies chest pain or dyspnea. No dizziness. No other complaints. No fever No generalized weakness. He does not take NSAIDs other than as per Plavix. He is not on a blood thinner He has urine culture from 11/27 positive for pseudomonas and E. coli. From his visit to emergency room for decreased urine output that time 12/04/2020 Patient is seen and evaluated resting comfortably in bed with family at bedside; denies any further episodes of bleeding Vital signs are reviewed and are stable; lab review shows a hemoglobin of 10.7 with hematocrit 31.4 which is stable from yesterday; sodium 137, potassium 4.6, BUN of 20 to with creatinine of 1.12 Antiplatelet therapy remains on hold; general surgery on board; GI bleed currently resolved and no further interventions recommended at this time Patient requesting urology consultation for indwelling Morelos catheter; await recommendations 12/05/2020 Patient is seen and evaluated with family at bedside; abates urology evaluation with further recommendations Vital signs are reviewed and stable with temperature of 98.2, pulse 69, respirations 17 and blood pressure of 165/83 with O2 saturation 97% CBC reveals WBC 8.9, hemoglobin 10.7 which is stable as yesterday Patient discussed with general surgery and no further GI evaluation as recommended Cardiology on board and recommending patient monitored for another 24 hours for stability of hemoglobin and placed on aspirin and Plavix prior to discharge Objective - Vital Signs Vital signs: Vital Signs Temp 98.2 F 12/05/20 11:33 Pulse 69 08/08/21 11:33 Resp 17 12/05/20 11:33 BP 165/83 12/05/20 11:33 Pulse Ox 97 12/05/20 11:33 Intake & Output 12/04/20 12/05/20 12/05/20 18:59 06:59 18:59 Intake Total 150 Output Total 1300 1650 Balance -1150 -1650 Intake: Intake, IV Titration 150 Amount cefTAZidime 1 gm In 50 Sodium Chloride 0.9% 50 ml @ 12.5 mls/hr IVPB Q8H [facility] Rx#:[id number] cefTAZidime 2 gm In 100 Sodium Chloride 0.9% 100 ml @ 25 mls/hr IVPB Q8H [facility] Rx#:[id number] Output: Urine 1300 1650 Other: Voiding Method Indwelling Catheter Indwelling Catheter Indwelling Catheter # Bowel Movements 1 - Exam GENERAL: The patient is alert and oriented x3, not in any acute distress. Well developed, well nourished. HEENT: Pupils are round and equally reacting to light. EOMI. No scleral icterus. No conjunctival pallor. Normocephalic, atraumatic. No pharyngeal erythema. No thyromegaly. CARDIOVASCULAR: S1 and S2 present. No murmurs, rubs, or gallops. PULMONARY: Chest is clear to auscultation, no wheezing or crackles. ABDOMEN: Soft, nontender, nondistended, normoactive bowel sounds. No palpable organomegaly. MUSCULOSKELETAL: No joint swelling or deformity. EXTREMITIES: No cyanosis, clubbing, or pedal edema. NEUROLOGICAL: Gross neurological examination did not reveal any focal deficits. SKIN: No rashes. No petechiae - Labs CBC & Chem 7: 12/05/20 09:18 12/04/20 06:16 Labs: Abnormal Lab Results - Last 24 Hours (Table) 12/04/20 12/04/20 12/04/20 Range/Units 17:10 18:10 20:24 RBC (4.30-5.90) m/uL Hgb (13.0-17.5) gm/dL Hct (39.0-53.0) % POC Glucose (mg/dL) 107 H 175 H (75-99) mg/dL Urine Blood Moderate H (Negative) Ur Leukocyte Esterase Small H (Negative) Urine RBC 7 H (0-5) /hpf Urine Mucus Rare H (None) /hpf 12/05/20 12/05/20 12/05/20 Range/Units 07:03 09:18 11:29 RBC 3.44 L (4.30-5.90) m/uL Hgb 10.7 L (13.0-17.5) gm/dL Hct 32.4 L (39.0-53.0) % POC Glucose (mg/dL) 129 H 167 H (75-99) mg/dL Urine Blood (Negative) Ur Leukocyte Esterase (Negative) Urine RBC (0-5) /hpf Urine Mucus (None) /hpf Microbiology - Last 24 Hours (Table) 12/02/20 09:49 Blood Culture - Preliminary Blood No Growth after 72 hours 12/02/20 09:49 Blood Culture - Preliminary Blood No Growth after 72 hours 12/02/20 09:49 Urine Culture - Final Urine,Voided Pseudomonas aeruginosa Assessment and Plan Assessment: Acute GI bleed Loss anemia secondary to above Acute tract infection Diabetes mellitus Hypertension Hyperlipidemia Chronic kidney disease stage III histoty Of coronary artery disease status post 9 stents Plan: this is a pleasant 80 years old male who presents with possible GI bleed.Also with UTI Admit the patient to select unit Continue with Protonix IV. Monitor hemoglobin and vitals. surgery team consult with Dr. Hoyos continuous ceftazidime. And consult infectious disease team Cardiology team consult for recent stent placement he has borderline blood pressure, not hypertensive so we'll not start his antihypertensive medication currently and keep monitoring. Hold Norvasc, enalapril and terazosin . Continue with metoprolol 25 mg daily and change Crestor to Lipitor. Hold metformin and continue with insulin sliding scale Labs and medications were reviewed. Continue with symptomatic treatment. Resume home medication. Monitor lytes and vitals. DVT and GI prophylaxis. Further recommendations depends on the clinical course of the patient DVT prophylaxis: no Subcutaneous heparin GI Prophylaxis: Ppi PT/OT: Pending Prognosis is guarded
[2020-12-05 20:19] LABS: Glucose,Whole Blood 191 mg/dL (75-99)
[2020-12-06 05:14] VITALS: RESP 16
--- NOTE | 2020-12-06 06:41 | PN ---
PROGRESS NOTE DATE OF SERVICE: 12/05/2020 REASON FOR FOLLOWUP: Catheter associated urinary tract infection. INTERVAL HISTORY: Patient is afebrile. The patient is breathing comfortably. Denies having any chest pain, shortness of breath or cough. No abdominal pain. No diarrhea. PHYSICAL EXAMINATION: Blood pressure 151/73 with a pulse of 86, temperature 98.1. He is 97% on room air. General description is an elderly male lying in bed in no distress. Respiratory system: Unlabored breathing, clear to auscultation anteriorly. Heart S1, S2. Regular rate and rhythm. Abdomen soft, no tenderness. LABS: No new labs have been obtained today. DIAGNOSTIC IMPRESSION AND PLAN: Patient with Pseudomonas catheter associated urinary tract infection, possible colonization versus mild urinary tract infection, covered with Fortaz to continue while inpatient and can be discontinued on discharge. MMODL / IJN: [id number] /
[2020-12-06 07:28] LABS: Glucose,Whole Blood 116 mg/dL (75-99)
[2020-12-06 07:37] LABS: Basophils # (A) 0.1 k/uL (0-0.2); Basophils % (A) 1 %; Eosinophils # (A) 0.5 k/uL (0-0.7); Eosinophils % (A) 7 %; HGB 10.2 gm/dL (13.0-17.5); Lymphocytes # (A) 1.1 k/uL (1.0-4.8); Lymphocytes % (A) 15 %; MCH 31.5 pg (25.0-35.0); MCV 92.7 fL (80.0-100.0); Monocytes # (A) 0.5 k/uL (0-1.0); Monocytes % (A) 7 %; Neutrophils # (A) 5.2 k/uL (1.3-7.7); Neutrophils % (A) 69 %; Platelet Count 299 k/uL (150-450); RBC 3.23 m/uL (4.30-5.90); RDW 14.2 % (11.5-15.5); WBC 7.5 k/uL (3.8-10.6)
[2020-12-06] MEDS ORDERED: ASPIRIN 81 MG PO SCH (09:00)
[2020-12-06] MEDS: INSULIN ASPART (NovoLOG) 100 UNIT/ML VIAL SQ SCH ×2 (09:08→13:12)
[2020-12-06] MEDS: FENOFIBRATE 160 MG TAB PO SCH (09:12)
[2020-12-06] MEDS: METOPROLOL SUCCINATE (ER) 25 MG TAB.ER.24H PO SCH (09:12)
[2020-12-06] MEDS: EZETIMIBE 10 MG TAB PO SCH (09:12)
[2020-12-06] MEDS: PANTOPRAZOLE 40 MG/10 ML VIAL IV SCH (09:12)
--- NOTE | 2020-12-06 10:15 | P.PN ---
Subjective This is a pleasant 80-year-old female past medical history significant for hypertension, hyperlipidemia, type 2 diabetes mellitus, myocardial infarction in July 2020, coronary artery disease status post stenting in 2007, and most recently July 2020 and August 2020, prostate cancer. He follows with Dr. Bautista at [facility]. We have been asked to see in consultation for recent stent with GI bleed. Patient presents to the emergency department due to blood in his stool. His cardiac history includes abnormal stress test in 2007, subsequently under went cardiac catheterization with stents placed. July 2020 he was told he did have a "small heart attack" and underwent cardiac catheterization with 1 stent placed, he was told there were also other blockage. He was taken back to the cath lab nurse in August 2020 to have 2 more stents placed. He follows closely with his special procedures tech. Total of 9 stents he states. Has undergone echocardiogram and has been told his LV function is ok/stable. Current home cardiac medications include amlodipine 5 mg daily, Crestor 5 mg nightly, metoprolol succinate 25 mg daily, Zetia 10 mg daily, enalapril 10 mg daily, Plavix 75 mg daily, aspirin 81 mg twice a day. 12/06/2020: Patient seen and examined at bedside, no acute distress. He denies a chest pain or shortness of breath. He has not had any further blood in his stool or urine. Laboratory data review WBC 7.5, hemoglobin stable at 10.2, platelets 299. He is currently maintained on study at 10 mg daily, low fiber 160 mg daily, amlodipine 5 mg daily, metoprolol succinate 25 mg daily. BMP lab still pending today. PHYSICAL EXAMINATION Blood pressure 138/74 heart rate 63 afebrile and maintaining oxygen saturation 98% on room air CONSTITUTIONAL: No apparent distress. HEENT: Neck Supple. No JVD. CHEST EXAMINATION: Lungs are clear to auscultation. HEART EXAMINATION: Regular rate and rhythm. S1, S2 heard. No murmurs, gallops or rub. ABDOMEN: Soft, nontender. Positive bowel sounds. : patient with mcknight catheter with blood tinged urine EXTREMITIES: 2+ peripheral pulses, no lower extremity edema and no calf tenderness. NEUROLOGIC EXAMINATION: Patient is awake, alert and oriented x3. ASSESSMENT GI bleed Blood in Urine Urinary tract infection Coronary artery disease s/p PCI in 2007, July 2020 and August 2020, states he has had a total of 9 stents Hypertension Type 2 Diabetes Hyperlipidemia Acute on Chronic kidney disease PLAN Patient is 4 months after his HI in July and 3 months from his recent stent placement, from a cardiology perspective, hold plavix at this time and continue aspirin. Recommend close follow up with his special procedures tech in regards to monitoring patient's bleeding and resuming of his plavix. ACEI currently on hold due to REGAN- Repeat BMP today pending. Monitor kidney function. Resume when REGAN resolved Continue other cardiac medications No further cardiac workup at this time Rest of management per GI and primary We will sign off at this time. Please reconsult if needed. Nurse Practitioner note has been reviewed, I agree with a documented findings and plan of care. Patient was seen and examined. Objective - Vital Signs Vital signs: Vital Signs Temp 98.5 F 12/06/20 05:00 Pulse 63 12/06/20 05:00 Resp 16 12/06/20 05:00 BP 138/74 12/06/20 05:00 Pulse Ox 98 12/06/20 05:00 Intake & Output 12/05/20 12/06/20 12/06/20 18:59 06:59 18:59 Intake Total 900 580 Output Total 2500 Balance 900 -1920 Intake: Intake, IV Titration 100 100 Amount cefTAZidime 2 gm In 100 100 Sodium Chloride 0.9% 100 ml @ 25 mls/hr IVPB Q8H [facility] Rx#:[id number] Oral 800 480 Output: Urine 2500 Uretheral (Mcknight) 2500 Other: Voiding Method Indwelling Catheter Indwelling Catheter # Voids 1 1 # Bowel Movements 1 - Labs CBC & Chem 7: 12/06/20 07:15 12/04/20 06:16 Labs: Abnormal Lab Results - Last 24 Hours (Table) 12/05/20 12/05/20 12/05/20 Range/Units 11:29 17:30 20:18 RBC (4.30-5.90) m/uL Hgb (13.0-17.5) gm/dL Hct (39.0-53.0) % POC Glucose (mg/dL) 167 H 102 H 191 H (75-99) mg/dL 12/06/20 12/06/20 Range/Units 07:15 07:25 RBC 3.23 L (4.30-5.90) m/uL Hgb 10.2 L (13.0-17.5) gm/dL Hct 30.0 L (39.0-53.0) % POC Glucose (mg/dL) 116 H (75-99) mg/dL Microbiology - Last 24 Hours (Table) 12/02/20 09:49 Blood Culture - Preliminary Blood No Growth after 72 hours 12/02/20 09:49 Blood Culture - Preliminary Blood No Growth after 72 hours
[2020-12-06 12:23] LABS: African American GFR (CKD) 65.8 (60.0-200.0); Anion Gap 6.4 mmol/L (4.00-12.00); BUN/Creat Ratio 10.83 Ratio (12.00-20.00); Calcium 9.2 mg/dL (8.7-10.3); Carbon Dioxide 26.6 mmol/L (21.6-31.8); Non-African American GFR(CKD) 56.8 (60.0-200.0); Potassium 4.8 mmol/L (3.5-5.5)
[2020-12-06 12:42] LABS: Glucose,Whole Blood 187 mg/dL (75-99)
[2020-12-06 13:32] VITALS: BP 143/75; PULSE 69; TEMP 99.1
--- NOTE | 2020-12-06 14:11 | P.CONS ---
History of Present Illness - Reason for Consult Consult date: 12/06/20 Lower GI bleed Requesting physician: Donnie Hoyos - Chief Complaint Blood in stool - History of Present Illness Same pleasant 80-year-old white male who presented to the emergency department on 12/02/2020 with complaints of bright red blood in his stool. Gen. surgery was consult to for GI bleed initially and was following this patient. The patient has past medical history of coronary artery disease and had recent stents placed in July and August of this year. He is currently on aspirin and Plavix secondary to stent placement. The patient reported that he presented to the emergency department after having 3 episodes of loose bowel movements with bright red blood mixed in. He denied any abdominal pain, cramping, nausea, or vomiting. He does have a Morelos catheter that has been in place for urinary retention. He is being treated for urinary tract infection outpatient and currently on IV antibiotics. He denies any previous history of GI bleed, states his last colonoscopy was 7-[address] Spaulding and reported that it was normal. Dr. Hoyos from its Gen. surgery had seen the patient and consulted Gastroenterology. Gastroenterology was consulted on 12/03/2020 however there was no coverage until today from gastroenterology. Today the patient is seen and examined and states that he has not had any further blood in his stool for the last 2 days duration. Continues to deny any abdominal pain, nausea, or vomiting. His been tolerating a regular diet. The held his Plavix on admission, but he has been on his aspirin. Patient would like to follow-up with Dr. Ye for a outpatient colonoscopy. Initial hemoglobin on admission was 11.7. Today's labs WBC 7.5, hemoglobin 10.2, hematocrit 30, platelet count 299,000, patient did have a positive occult stool on admission. Review of Systems REVIEW OF SYSTEMS: CARDIOPULMONARY: No chest pain or shortness of breath. Gastrointestinal: No abdominal pain. No nausea or vomiting. No hematemesis, coffee-ground emesis. No rectal bleeding, or melena. Patient had blood in stool, bright red prior to coming into the hospital. GENITOURINARY: No dysuria or hematuria. MUSCULOSKELETAL: Reports normal range of motion., Joint pain. SKIN: No rashes. No jaundice. ENDOCRINE: No chills, fevers. No excessive weight gain or loss. No polydipsia or polyuria. PSYCHIATRIC: Unremarkable. NEUROLOGY: No change in mental status. Denies dizziness, headache. ENT: Vision unremarkable. CONSTITUTIONAL: No recent weight loss. No fever, chills, night sweats. Past Medical History Past Medical History: Coronary Artery Disease (CAD), Cancer, Diabetes Mellitus, Hyperlipidemia, Hypertension, Myocardial Infarction (CT), Osteoarthritis (OA) Additional Past Medical History / Comment(s): prostate cancer Last Myocardial Infarction Date:: July 2020 History of Any Multi-Drug Resistant Organisms: Other MDRO Past Surgical History: Heart Catheterization With Stent Additional Past Surgical History / Comment(s): 9 stents Past Anesthesia/Blood Transfusion Reactions: No Reported Reaction Date of Last Stent Placement:: July 2020 Past Psychological History: No Psychological Hx Reported Smoking Status: Former smoker Past Alcohol Use History: Occasional Past Drug Use History: None Reported Medications and Allergies Home Medications Medication Instructions Recorded Confirmed Type Aspirin EC [Ecotrin Low Dose] 81 mg PO BID 11/18/20 12/02/20 History Cholecalciferol [Vitamin D3 (25 25 mcg PO DAILY 11/18/20 12/02/20 History Mcg = 1000 Iu)] Cyanocobalamin (Vitamin B-12) 1,000 mcg PO DAILY 11/18/20 12/02/20 History [Vitamin B-12] Ezetimibe [Zetia] 10 mg PO DAILY 11/18/20 12/02/20 History Gemfibrozil [Lopid] 600 mg PO BID 11/18/20 12/02/20 History Metoprolol Succinate (ER) [Toprol 25 mg PO DAILY 11/18/20 12/02/20 History XL] Multivit-Min/FA/Lycopen/Lutein 1 tab PO DAILY 11/18/20 12/02/20 History [Centrum Silver Men Tablet] Rosuvastatin Calcium [Crestor] 5 mg PO HS 11/18/20 12/02/20 History amLODIPine [Norvasc] 5 mg PO DAILY 11/18/20 12/02/20 History Aspirin 81 mg PO DAILY chew 12/06/20 Rx Allergies Allergy/AdvReac Type Severity Reaction Status Date / Time Penicillins AdvReac Rash/Hives Verified 12/02/20 09:22 Sulfa (Sulfonamide AdvReac Rash/Hives Verified 12/02/20 09:22 Antibiotics) Physical Exam Vitals: Vital Signs Temp Pulse Resp BP Pulse Ox 12/06/20 05:00 98.5 F 63 16 138/74 98 12/05/20 19:37 98.1 F 66 18 151/73 97 12/05/20 11:33 98.2 F 69 17 165/83 97 Intake and Output 12/05/20 12/06/20 12/06/20 22:59 06:59 14:59 Intake Total 900 580 Output Total 2500 Balance 900 -1920 Intake: Intake, IV Titration 100 100 Amount cefTAZidime 2 gm In 100 100 Sodium Chloride 0.9% 100 ml @ 25 mls/hr IVPB Q8H [facility] Rx#:[id number] Oral 800 480 Output: Urine 2500 Uretheral (Morelos) 2500 Other: Voiding Method Indwelling Catheter # Voids 1 1 # Bowel Movements 1 General appearance: The patient is alert, oriented, appears in no acute distress. HET: Head is normocephalic and atraumatic. Conjunctiva pink. Sclera anicteric. Neck: Supple without lymphadenopathy. Trachea midline. Heart: S1 S2. Regular rate and rhythm. Lungs: Clear to auscultation. Abdomen: Soft, nontender, nondistended with bowel sounds. No guarding or rigidity. Skin: No rashes. No jaundice. Extremities: Normal skin color and turgor. No pedal edema. Neurological: No focal deficits. Alert and oriented 3.. Results CBC & Chem 7: 12/06/20 07:15 12/06/20 07:15 Labs: Abnormal Lab Results - Last 24 Hours (Table) 12/05/20 12/05/20 12/05/20 Range/Units 11:29 17:30 20:18 RBC (4.30-5.90) m/uL Hgb (13.0-17.5) gm/dL Hct (39.0-53.0) % POC Glucose (mg/dL) 167 H 102 H 191 H (75-99) mg/dL 12/06/20 12/06/20 Range/Units 07:15 07:25 RBC 3.23 L (4.30-5.90) m/uL Hgb 10.2 L (13.0-17.5) gm/dL Hct 30.0 L (39.0-53.0) % POC Glucose (mg/dL) 116 H (75-99) mg/dL Microbiology - Last 24 Hours (Table) 12/02/20 09:49 Blood Culture - Preliminary Blood No Growth after 72 hours 12/02/20 09:49 Blood Culture - Preliminary Blood No Growth after 72 hours Assessment and Plan (1) Lower gastrointestinal hemorrhage Narrative/Plan: 80-year-old male who presented to the emergency department 4 days ago with complaints of bright red blood mixed in his stool. Patient states he had 3 episodes of loose stool with blood mixed in. He had no associated abdominal pain or cramping. He denies any previous history of GI bleed. He had been taking aspirin and Plavix for recent heart stents placed earlier this year. Patient has had no further rectal bleeding or blood in his stool for the past 2 days, hemoglobin has remained stable. His last reported colonoscopy was [address] Simon, which he stated was normal. He has no previous history of EGD. Possible etiologies could include hemorrhoidal bleed, AVM, diverticular bleed, or other possible etiologies. No plans on endoscopic evaluation at this time. Patient would like to follow up with Dr. Ye for outpatient colonoscopy. Current Visit: Yes Status: Acute Code(s): K92.2 - GASTROINTESTINAL HEMORRHAGE, UNSPECIFIED SNOMED Code(s): 02869369 (2) Pseudomonas urinary tract infection Current Visit: Yes Status: Acute Code(s): N39.0 - URINARY TRACT INFECTION, SITE NOT SPECIFIED; B96.5 - PSEUDOMONAS (MALLEI) CAUSING DISEASES CL[facility]SD [facility] SNOMED Code(s): 808699426334781 (3) Urinary retention Current Visit: No Status: Acute Code(s): R33.9 - RETENTION OF URINE, UNSPECIFIED SNOMED Code(s): 590907870 Plan: 1. Continue symptomatic and supportive care 2. Continue regular diet 3. Labs reviewed 4. No plans for endoscopic evaluation at this time, recommend outpatient colonoscopy. Patient would like to follow-up with Dr. Ye for colonoscopy. Thank you for this consultation and allowing us to take part in the plan of care of your patient. Dr. Simon I agree with the dictator's note, documented as a scribe by Alejandrina Woodward.
--- NOTE | 2020-12-07 13:38 | P.DS ---
Providers Date of admission: 12/02/20 10:39 Expected date of discharge: 12/06/20 Attending physician: Ming Villeda MD Consults: 12/02/20 13:13 Consult Physician Urgent Consulting Provider: Donnie Hoyos Consult Reason/Comments: GI Hemorrage Do you want consulting provider notified?: Yes 12/02/20 13:33 Consult Physician Routine Consulting Provider: Kaylen Andrade Consult Reason/Comments: complicated UTI Do you want consulting provider notified?: Yes Consult Physician Urgent Consulting Provider: Theodore Rich Consult Reason/Comments: recent stent with gi bleed Do you want consulting provider notified?: Yes 12/04/20 09:09 Consult Physician Routine Consulting Provider: Sha Morales Consult Reason/Comments: hematuria, patient request Do you want consulting provider notified?: Yes 12/06/20 12:51 Consult Physician Routine Consulting Provider: Leidy Sánchez Consult Reason/Comments: GI Bleed Do you want consulting provider notified?: Yes Primary care physician: Cheri Valdez Hospital Course: Final diagnosis Acute GI bleed Acute blood Loss anemia secondary to above Acute tract infection Diabetes mellitus Hypertension Hyperlipidemia Chronic kidney disease stage III History Of coronary artery disease status post 9 stents GI prophylaxis DVT prophylaxis Full code Discharge disposition Patient is being discharged in a stable condition with guarded prognosis to home. Patient will follow-up with Dr. Valdez in the outpatient setting upon discharge. Patient also following up with GI Dr. Zhang for outpatient colonoscopy along with urology Dr. Keys at scheduled appointment tomorrow. Patient will continue with home care in the outpatient setting. Recommend repeat labs to monitor CBC closely. Total time taken is greater than 35 art philip. Hospital course Acute GI bleed Acute blood Loss anemia Acute UTI 80 years old male with past medical history of hypertension, hyperlipidemia, diabetes mellitus, coronary artery disease status post stenting with 9 stents, prostate cancer. Patient presents because he noticed blood in his stool. Patient states that he has recent history of urinary retention status post indwelling Morelos catheter placed about 3 weeks ago and he follows up with Dr. morales. His PCP is Dr. Valdez and product owner Dr. Mayberry. He is on aspirin and Plavix for his coronary artery disease, stents placed for him last July and August this year as per patient He presents today because he noticed fresh blood with his loose stool from yesterday night, 1 episode yesterday and 3 episodes today. There was some amou nt of fresh blood with his loose stool. However no abdominal pain, no nausea vomiting. He denies chest pain or dyspnea. No dizziness. No other complaints. No fever No generalized weakness. He does not take NSAIDs other than as per Plavix. He is not on a blood thinner He has urine culture from 11/27 positive for pseudomonas and E. coli. From his visit to emergency room for decreased urine output that time 12/04/2020 Patient is seen and evaluated resting comfortably in bed with family at bedside; denies any further episodes of bleeding Vital signs are reviewed and are stable; lab review shows a hemoglobin of 10.7 with hematocrit 31.4 which is stable from yesterday; sodium 137, potassium 4.6, BUN of 20 to with creatinine of 1.12 Antiplatelet therapy remains on hold; general surgery on board; GI bleed currently resolved and no further interventions recommended at this time Patient requesting urology consultation for indwelling Morelos catheter; await recommendations 12/05/2020 Patient is seen and evaluated with family at bedside; abates urology evaluation with further recommendations Vital signs are reviewed and stable with temperature of 98.2, pulse 69, respirations 17 and blood pressure of 165/83 with O2 saturation 97% CBC reveals WBC 8.9, hemoglobin 10.7 which is stable as yesterday Patient discussed with general surgery and no further GI evaluation as recommended Cardiology on board and recommending patient monitored for another 24 hours for stability of hemoglobin and placed on aspirin and Plavix prior to discharge 12/06/2020 Patient is seen in follow-up with no acute overnight issues noted. Repeat CBC was done and white blood count is normal at 7.5 and hemoglobin is stable at 10.2. Patient to continue with aspirin and per GI recommendations okay to resume Plavix and recommend outpatient follow-up with repeat labs in a few days to monitor hemoglobin closely. Patient also has appointment with urology tomorrow and instructed to keep as he has an indwelling Morelos catheter and needs urological follow up. Patient was continued on IV Fortaz with infectious disease following closely for over 5 days and will not require antibiotic therapy in the outpatient setting. Patient will need to follow-up with GI for colonoscopy in 3-4 weeks outpatient. Currently no reports of chest pain, shortness of breath, or palpitations. Patient is afebrile. No reports of nausea or vomiting and patient is tolerating diet. Patient is adamant about going home today. Patient will be discharged home today. GENERAL: The patient is alert and oriented x3, not in any acute distress. Well developed, well nourished. HEENT: Pupils are round and equally reacting to light. EOMI. No scleral icterus. No conjunctival pallor. Normocephalic, atraumatic. No pharyngeal erythema. No thyromegaly. CARDIOVASCULAR: S1 and S2 present. No murmurs, rubs, or gallops. PULMONARY: Chest is clear to auscultation, no wheezing or crackles. ABDOMEN: Soft, nontender, nondistended, normoactive bowel sounds. No palpable organomegaly. MUSCULOSKELETAL: No joint swelling or deformity. EXTREMITIES: No cyanosis, clubbing, or pedal edema. NEUROLOGICAL: Gross neurological examination did not reveal any focal deficits. SKIN: No rashes. On exam vital signs are stable. Cardio S1, S2 are muffled. Respiratory system shows diminished breath sounds at the bases with no wheezing or rhonchi noted. Abdomen is soft and obese, and nontender. Nervous system shows diffuse weakness. Please refer to medication reconciliation sheet for a list of medications. Patient Condition at Discharge: Stable Plan - Discharge Summary Discharge Rx Participant: No New Discharge Prescriptions: New Aspirin 81 mg PO DAILY chew Continue Multivit-Min/FA/Lycopen/Lutein [Centrum Silver Men Tablet] 1 tab PO DAILY Aspirin EC [Ecotrin Low Dose] 81 mg PO BID Metoprolol Succinate (ER) [Toprol XL] 25 mg PO DAILY amLODIPine [Norvasc] 5 mg PO DAILY Cyanocobalamin (Vitamin B-12) [Vitamin B-12] 1,000 mcg PO DAILY Rosuvastatin Calcium [Crestor] 5 mg PO HS Cholecalciferol [Vitamin D3 (25 Mcg = 1000 Iu)] 25 mcg PO DAILY Gemfibrozil [Lopid] 600 mg PO BID Ezetimibe [Zetia] 10 mg PO DAILY Discontinued Terazosin [Hytrin] 5 mg PO DAILY Enalapril [Vasotec] 10 mg PO DAILY Clopidogrel [Plavix] 75 mg PO DAILY Cephalexin [Keflex] 500 mg PO Q12HR #20 cap metFORMIN HCL [Glucophage] 500 mg PO BID Discharge Medication List Aspirin EC [Ecotrin Low Dose] 81 mg PO BID 11/18/20 [History] Cholecalciferol [Vitamin D3 (25 Mcg = 1000 Iu)] 25 mcg PO DAILY 11/18/20 [History] Cyanocobalamin (Vitamin B-12) [Vitamin B-12] 1,000 mcg PO DAILY 11/18/20 [History] Ezetimibe [Zetia] 10 mg PO DAILY 11/18/20 [History] Gemfibrozil [Lopid] 600 mg PO BID 11/18/20 [History] Metoprolol Succinate (ER) [Toprol XL] 25 mg PO DAILY 11/18/20 [History] Multivit-Min/FA/Lycopen/Lutein [Centrum Silver Men Tablet] 1 tab PO DAILY 11/18/20 [History] Rosuvastatin Calcium [Crestor] 5 mg PO HS 11/18/20 [History] amLODIPine [Norvasc] 5 mg PO DAILY 11/18/20 [History] Aspirin 81 mg PO DAILY chew 12/06/20 [Rx] Follow up Appointment(s)/Referral(s): Yared Bautista MD [REFERRING] - 1 Week Leidy Sánchez MD [STAFF PHYSICIAN] - As Needed (recommend outpatient colonoscopy) [facility], [NON-STAFF] - 1 Week Cheri Valdez MD [Primary Care Provider] - 1-2 days (The office is closed please call and make follow up appointment.) Vince Keys MD [STAFF PHYSICIAN] - 12/07/20 9:00 am Ambulatory/Diagnostic Orders: Complete Blood Count w/diff [LAB.AMB] Time Frame: 3 Days, Location: None Selected Patient Instructions/Handouts: Gastrointestinal Bleeding (DC), Urinary Retention in Men (ED), Urinary Tract Infection in Men (DC) Activity/Diet/Wound Care/Special Instructions: Activity is limited until follow-up Continue indwelling Morelos catheter and keep urology appointment for tomorrow Follow-up primary care provider upon discharge Continue to hold Plavix until follow-up with GI Follow-up GI outpatient for colonoscopy Follow-up cardiology outpatient Continue to monitor blood sugars before meals and at bedtime and keep a diary f or primary care follow-up Repeat labs in 2-3 days to monitor CBC and BMP Continue heart healthy diet Discharge Disposition: HOME WITH HOME HEALTH SERVICES
== END 2020-12-06 17:52 | disposition home health service (06) | DRG 699 ==
LOC: EC 09:19 → 5NMEDONC 10:39 → 3SCARD 13:29 → 5NMEDONC 12-03 22:22
PROVIDERS: ADMIT Internal Medicine; ATTEND Internal Medicine
DX: T83.518A Infection and inflammatory reaction due to other urinary catheter, initial encounter (principal); K92.1 Melena; N39.0 Urinary tract infection, site not specified; D62 Acute posthemorrhagic anemia; N17.9 Acute kidney failure, unspecified; Z79.02 Long term (current) use of antithrombotics/antiplatelets; Z79.84 Long term (current) use of oral hypoglycemic drugs; Z79.82 Long term (current) use of aspirin; I25.10 Atherosclerotic heart disease of native coronary artery without angina pectoris; I25.2 Old myocardial infarction; Z85.46 Personal history of malignant neoplasm of prostate; Z87.891 Personal history of nicotine dependence; B96.5 Pseudomonas (aeruginosa) (mallei) (pseudomallei) as the cause of diseases classified elsewhere; Z95.5 Presence of coronary angioplasty implant and graft; E11.22 Type 2 diabetes mellitus with diabetic chronic kidney disease; I12.9 Hypertensive chronic kidney disease with stage 1 through stage 4 chronic kidney disease, or unspecified chronic kidney disease; N18.30 Chronic kidney disease, stage 3 unspecified; E78.5 Hyperlipidemia, unspecified; R33.9 Retention of urine, unspecified; Y84.6 Urinary catheterization as the cause of abnormal reaction of the patient, or of later complication, without mention of misadventure at the time of the procedure; Z79.899 Other long term (current) drug therapy; Z88.1 Allergy status to other antibiotic agents
CPT/HCPCS: 36415; 80048; 80053; 81001; 82272; 85025; 85610; 85730; 87040; 87077; 87086; 87186; 96374; 99285

== ENCOUNTER → 2023-01-12 | Outpatient (CLI) | payer MEDICARE, BC ==
--- NOTE | 2023-01-12 09:29 | US ---
EXAMINATION TYPE: US kidneys/renal and bladder DATE OF EXAM: 01/12/2023 COMPARISON: NONE CLINICAL INDICATION: Male, 82 years old with history of N18.32 CHRONIC KIDNEY DISEASE, STAGE 3B; EXAM MEASUREMENTS: Right Kidney: 10.5 x 4.7 x 5.6 cm Left Kidney: 10.6 x 5.4 x 5.3 cm Right Kidney: no hydronephrosis or masses seen Left Kidney: multiple exophytic cyst areas superior pole with largest measuring 2.3cm Bladder: wnl Bilateral Jets seen: yes There is no evidence for hydronephrosis at this point in time. No nephrolithiasis is seen. No solid masses are identified. The urinary bladder is anechoic. Bilateral ureteral jets are seen. IMPRESSION: Simple renal cysts the left kidney.
== END | disposition home or self-care (01) ==
LOC: RADUSWWP 08:55
PROVIDERS: ATTEND Internal Medicine
DX: N18.32 Chronic kidney disease, stage 3b (principal); N28.1 Cyst of kidney, acquired
CPT/HCPCS: 76770